=== PATIENT | female | born 1940 | race Caucasian/White ===

== ENCOUNTER → 2016-09-16 | Outpatient (CLI) | payer MEDICARE, BC ==
[2016-09-16 10:03] LABS: Basophils % (A) 1 %; CH 31.7; CHCM 33.1; Eosinophils # (A) 0.2 k/uL (0-0.7); Eosinophils % (A) 5 %; HCT 42.4 % (34.0-46.0); HDW 2.43; HGB 14.7 gm/dL (11.4-16.0); Luc # (Auto) 0.14; Luc % (Auto) 3; Lymphocytes # (A) 0.7 k/uL (1.0-4.8); Lymphocytes % (A) 17 %; MCH 33.4 pg (25.0-35.0); MCHC 34.8 g/dL (31.0-37.0); MCV 96.2 fL (80.0-100.0); Mean Platelet Volume 6.8; Monocytes # (A) 0.3 k/uL (0-1.0); Monocytes % (A) 6 %; Neutrophils % (A) 69 %; RDW 13.2 % (11.5-15.5); WBC 4.4 k/uL (3.8-10.6); WBC (Perox) 4.53
[2016-09-16 10:12] LABS: INR 1.1 (<1.1); Prothrombin Time 11.2 sec (9.0-12.0)
[2016-09-16 11:00] LABS: Appearance,Urine Clear (Clear); Bilirubin,Urine Negative (Negative); Glucose,Urine (UA) Negative (Negative); Ketones,Urine Negative (Negative); Leukocyte Esterase,Urine Trace (Negative); Mucus,Urine Rare /hpf; Nitrite,Urine Negative (Negative); PH, Urine 5.5 (5.0-8.0); Particle Count 2755; Protein,Urine Negative (Negative); RBC,Urine <1 /hpf (0-5); Specific Gravity,Urine 1.015 (1.001-1.035); Squamous Epithelial Cell,Urine <1 /hpf (0-4); UA Billing (MACRO vs. MICRO) MICRO; Urobilinogen,Urine <2.0 mg/dL (<2.0); WBC,Urine 1 /hpf (0-5)
[2016-09-16 11:37] LABS: ALT 50 U/L (9-52); AST 41 U/L (14-36); Alkaline Phosphatase 85 U/L (38-126); Anion Gap 11 mmol/L; Blood Urea Nitrogen 19 mg/dL (7-17); Calcium 9.8 mg/dL (8.4-10.2); Carbon Dioxide 25 mmol/L (22-30); Chloride 106 mmol/L (98-107); Cholesterol 188 mg/dL (<200); Creatine Kinase 73 U/L (30-135); Glucose 87 mg/dL (74-99); HDL Cholesterol 91 mg/dL (40-60); Iron 145 ug/dL (37-170); Non-African American GFR(MDRD) >60 (>60 ml/min/1.73 sqM); Potassium 4.6 mmol/L (3.5-5.1); Sodium 142 mmol/L (137-145); Total Bilirubin 0.9 mg/dL (0.2-1.3); Total Protein 7.2 g/dL (6.3-8.2); Triglycerides 64 mg/dL (<150); Uric Acid 6.2 mg/dL (3.7-7.4)
[2016-09-16 11:51] LABS: % Iron Saturation 55.6 % (20-50); Total Iron Binding Capacity 261 ug/dL (265-497)
== END | disposition home or self-care (01) ==
LOC: LABWHC1 09:32
PROVIDERS: ATTEND Internal Medicine
DX: E03.9 Hypothyroidism, unspecified (principal); K74.60 Unspecified cirrhosis of liver
CPT/HCPCS: 36415; 80053; 80061; 81001; 82140; 82550; 82728; 83036; 83540; 83550; 84439; 84443; 84550; 85025; 85610

== ENCOUNTER → 2016-12-26 | Outpatient (CLI) | payer MEDICARE, BC ==
--- NOTE | 2016-12-26 08:26 | US ---
EXAMINATION TYPE: US abdomen complete DATE OF EXAM: 12/26/2016 COMPARISON: CT CLINICAL HISTORY: R10.9 Abd Pain. Pt states GERD, ABD pain, Diarrhea EXAM MEASUREMENTS: Liver Length: 8.8 cm Gallbladder Wall: 0.3 cm CBD: 0.3 cm Spleen: 11.5 cm Right Kidney: 9.4 x 4.2 x 4.0 cm Left Kidney: 10.5 x 4.3 x 3.7 cm Pancreas: wnl, tail obscured by bowel gas Liver: Left lobe appeared enlarged, heterogeneous Gallbladder: wnl Evidence for sonographic Ackerman's sign: No CBD: wnl Spleen: wnl Right Kidney: wnl Left Kidney: wnl Upper IVC: wnl Abd Aorta: wnl The intrahepatic portion of the IVC and proximal abdominal aorta are within normal limits. There i s no evidence of cholelithiasis. Common bile duct is unremarkable. The visualized portions of the p ancreas are homogenous. The spleen is unremarkable. Kidneys are symmetric and free of hydronephrosi s. No renal lesions are seen. IMPRESSION: 1. Hepatic heterogeneity which may reflect fatty hepatic infiltration.
== END | disposition home or self-care (01) ==
LOC: RADUSWWP 07:44
PROVIDERS: ATTEND Internal Medicine
DX: R10.9 Unspecified abdominal pain (principal)
CPT/HCPCS: 76700

== ENCOUNTER → 2019-04-19 | Outpatient (CLI) | payer MEDICARE, BC ==
--- NOTE | 2019-04-19 11:38 | BD ---
EXAMINATION TYPE: Axial Bone Density DATE OF EXAM: 04/19/2019 COMPARISON: 2014 CLINICAL HISTORY: M81.0 Height: 62 inches Weight: 145 FRAX RISK QUESTIONS: Alcohol (3 or more units per day): no Family History (Parent hip fracture): no Glucocorticoids (More than 3mos): no (Ex: prednisone, prednisolone, methylprednisolone, dexamethasone, and hydrocortisone). History of Fracture in Adulthood: yes Secondary Osteoporosis: 1. Type 1 Diabetes: no 2. Hyperthyroidism: no 3. Menopause before 45: yes, age 43 4. Malnutrition: no 5. 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 Rheumatoid Arthritis: no Current Tobacco Use: no RISK FACTORS HISTORY OF: Family History of Osteoporosis: no Active: yes Diet low in dairy products/other sources of calcium: at least one serving a day Postmenopausal woman: yes Take estrogen and/or progesterone medications: not now How long: estrogen about 12 years, progesterone about 4 years Lost more than 2 inches in height since high school: no Frequent falls: no Poor Health: no Hyperparathyroidism: no Adrenal Insufficiency: no MEDICATIONS: Prednisone or other steroids: no Thyroid Medications: yes Which medication: Levothyroxine How Long: about 6 years Osteoporosis Medications: no Additional Medications: vitamin C ; Lexapro Additional History: Breast CA, took an antineoplastic about 5 years; total hysterectomy age 48; stra er levels are up EXAM MEASUREMENTS: Bone mineral densitometry was performed using the [employer] System. Bone mineral density as measured about the Lumbar spine is: ----- L1-L4(G/cm2): 1.008 T Score Values are as follows: ----- L2: -1.2 ----- L3: -1.0 ----- L4: -2.0 ----- L1-L4: -1.4 Bone mineral density has: Increased 0.9% since study of: 08/22/2014 Bone mineral density about the R hip (g/cm2): 0.671 Bone mineral density about the L hip (g/cm2): 0.669 T Score values are as follows: -----R Neck: -2.6 -----L Neck: -2.7 -----R Total: -2.4 -----L Total: -2.5 Bone mineral density has: Decreased -2.0% since study of: 08/22/2014 IMPRESSION: Osteoporosis (T Score less than -2.5). There is increased fracture risk and therapy is usually indicated based on age. Re-Screen 1-2 years. NOTE: T-SCORE=SD OF THE YOUNG ADULT MEAN.
--- NOTE | 2019-04-20 11:02 | MM ---
Reason for exam: screening (asymptomatic). Last mammogram was performed 4 years and 6 months ago. History: Patient is postmenopausal, has history of breast cancer at age 65, and had previous chest radiation therapy at age 64. Family history of breast cancer in sister at age 60 and breast cancer in aunt. Benign US biopsy breast VAD RT of the right breast, October 20, 2014. Excisional biopsy of the left breast, January 12, 2006. Malignant lumpectomy of the left breast, January 12, 2006. Malignant left mammotome panel of the left breast, December 22, 2005. Radiation therapy of the left breast, 2005. Took estrogen for 12 years beginning at age 49. Took progesterone for 4 years. Took tamoxifen for 5 years beginning at age 65. Physical Findings: A clinical breast exam by your physician is recommended on an annual basis and results should be correlated with mammographic findings. MG 3D Screening Mammo W/Cad Bilateral CC and MLO view(s) were taken. Prior study comparison: October 20, 2014, right breast MG diagnostic mammo RT wo CAD. August 22, 2014, bilateral MG diagnostic mammo w CAD DAVID. The breast tissue is heterogeneously dense. This may lower the sensitivity of mammography. Benign appearing bilateral calcifications, greater in the left breast. Right biopsy marker noted. No suspicious abnormality. Post therapy change on the left. No significant changes when compared with prior studies. ASSESSMENT: Negative, BI-RAD 1 RECOMMENDATION: Routine screening mammogram of both breasts in 1 year.
== END | disposition home or self-care (01) ==
LOC: RADMAMWWP 09:37
PROVIDERS: ATTEND Internal Medicine
DX: Z12.31 Encounter for screening mammogram for malignant neoplasm of breast (principal); M81.0 Age-related osteoporosis without current pathological fracture
CPT/HCPCS: 77063; 77067; 77080

== ENCOUNTER → 2020-09-04 | Outpatient (CLI) | payer MEDICARE, BC ==
--- NOTE | 2020-09-06 09:34 | MM ---
Reason for exam: screening (asymptomatic). Last mammogram was performed 1 year and 5 months ago. History: Patient is postmenopausal, has history of breast cancer at age 65, and had previous chest radiation therapy at age 64. Family history of breast cancer in sister at age 60 and breast cancer in aunt. Benign US biopsy breast VAD RT of the right breast, October 20, 2014. Excisional biopsy of the left breast, January 12, 2006. Malignant lumpectomy of the left breast, January 12, 2006. Malignant left mammotome panel of the left breast, December 22, 2005. Radiation therapy of the left breast, 2005. Took estrogen for 12 years beginning at age 49. Took progesterone for 4 years. Took tamoxifen for 5 years beginning at age 65. Physical Findings: A clinical breast exam by your physician is recommended on an annual basis and results should be correlated with mammographic findings. MG 3D Screening Mammo W/Cad Bilateral CC and MLO view(s) were taken. XCCL view(s) were taken of the left breast. Prior study comparison: April 19, 2019, bilateral MG 3d screening mammo w/cad. October 20, 2014, right breast MG diagnostic mammo RT wo CAD. The breast tissue is heterogeneously dense. This may lower the sensitivity of mammography. Previous mammotome biopsy in the right breast. Left post operative changes. ASSESSMENT: Benign, BI-RAD 2 RECOMMENDATION: Routine screening mammogram of both breasts in 1 year.
== END | disposition home or self-care (01) ==
LOC: RADMAMWWP 09:52
PROVIDERS: ATTEND Internal Medicine
DX: Z12.31 Encounter for screening mammogram for malignant neoplasm of breast (principal)
CPT/HCPCS: 77063; 77067

== ENCOUNTER 2021-02-23 15:27 | Emergency (ER) | payer MEDICARE, BC ==
[2021-02-23 17:43] VITALS: BP 151/69; PULSE 55; RESP 16; TEMP 98.7
--- NOTE | 2021-02-23 18:35 | CT ---
EXAMINATION TYPE: CT brain lucine wo con DATE OF EXAM: 02/23/2021 COMPARISON: None HISTORY: Fall yesterday. CT DLP: 1299.8 mGycm Automated exposure control for dose reduction was used. TECHNIQUE: CT scan of the head and cervical spine are performed without contrast. FINDINGS: There is no acute intracranial hemorrhage, mass effect, or midline shift identified. The ventricles and sulci are within normal limits in size. The globes are intact and the visualized sin uses are clear. Subcutaneous presumably scalp hematomas are identified along the right posterior skull. The largest m easuring up to 2.0 x 1.1 cm. Cervical spine is visualized in its entirety from C1 through upper thoracic levels and demonstrates s atisfactory alignment without evidence of acute fracture or dislocation. Prevertebral soft tissue ap pears within normal limits. The C1-C2 articulation is unremarkable. Vascular calcifications at the left carotid bifurcation. IMPRESSION: 1. There is no acute fracture or dislocation evident in the cervical spine. 2. No acute intracranial hemorrhage, mass effect, or midline shift is seen. 3. Right posterior scalp hematomas.
--- NOTE | 2021-02-23 19:11 | ED ---
Head Injury HPI - General Chief complaint: Head Injury Stated complaint: Fall,Head injury Time Seen by Provider: 02/23/21 18:34 Source: patient Mode of arrival: ambulatory Limitations: no limitations - History of Present Illness Initial comments: 80-year-old female who presents emergency department after she sustained a head injury yesterday. She reports that she was attempting to get a food delivery off of her front porch when she actually lost her balance and fell. She hit the right side of her head on the ledge leading into her house. She did not lose consciousness. Patient is not a blood thinners. She has had a mild headache without visual changes. Admits to nausea without vomiting. She denies any neck pain. She did have some bleeding from a scalp laceration however is pearly controlled at this time. She told family members about the injury and they recommended that she come into the emergency department for a CAT scan. She den ies any unilateral numbness or weakness. No difficulties with ambulation. Denies vomiting. No chest pain or shortness of breath. No thoracic or lumbar back pain. No alleviating precipitating or modifying factors - Related Data Allergies/Adverse reactions: Allergies Allergy/AdvReac Type Severity Reaction Status Date / Time No Known Allergies Allergy Verified 02/23/21 17:43 Review of Systems ROS Statement: Those systems with pertinent positive or pertinent negative responses have been documented in the HPI. ROS Other: All systems not noted in ROS Statement are negative. Past Medical History Past Medical History: Liver Disease, Thyroid Disorder Additional Past Medical History / Comment(s): mitral valve prolapse History of Any Multi-Drug Resistant Organisms: None Reported Past Surgical History: Section, Hysterectomy Past Psychological History: No Psychological Hx Reported Smoking Status: Never smoker Past Alcohol Use History: Occasional Past Drug Use History: None Reported General Exam Limitations: no limitations General appearance: alert, in no apparent distress Head exam: Present: normocephalic, normal inspection, other (posterior scalp laceration with overlying scabbing - 2.5 x 1.0 cm. No active bleeding) Eye exam: Present: normal appearance, PERRL, EOMI. Absent: scleral icterus, conjunctival injection, periorbital swelling ENT exam: Present: normal exam, mucous membranes moist Neck exam: Present: normal inspection. Absent: tenderness, meningismus, lymphadenopathy Respiratory exam: Present: normal lung sounds bilaterally. Absent: respiratory distress, wheezes, rales, rhonchi, stridor Cardiovascular Exam: Present: regular rate, normal rhythm, normal heart sounds. Absent: systolic murmur, diastolic murmur, rubs, gallop, clicks GI/Abdominal exam: Present: soft, normal bowel sounds. Absent: distended, tenderness, guarding, rebound, rigid Extremities exam: Present: normal inspection, full ROM, normal capillary refill. Absent: tenderness, pedal edema, joint swelling, calf tenderness Back exam: Present: normal inspection Neurological exam: Present: alert, oriented X3, CN II-XII intact Psychiatric exam: Present: normal affect, normal mood Skin exam: Present: warm, dry, intact, normal color. Absent: rash Course Vital Signs 02/23/21 17:39 Temperature 98.7 F Pulse Rate 55 L Respiratory 16 Rate Blood Pressure 151/69 O2 Sat by Pulse 97 Oximetry Medical Decision Making - Medical Decision Making Upon arrival patient is placed into room 29. A thorough history and physical exam was performed. Patient is sent over for a CT of her brain and cervical spine which demonstrates no acute intracranial process. No cervical spinal fractures. I did evaluate the patient's skin which demonstrates a scalp laceration which has a scab formation over the top of it. At this time stable repair will not be performed as the injury happened over 24 hours ago. Patient understood and agreed to the treatment plan. Is discharged home and is to follow-up with her primary care doctor in 2-4 days. Return for any new or worsening symptoms for patient is discharged home in stable condition Disposition Clinical Impression: Closed head injury Disposition: HOME SELF-CARE Condition: Stable Instructions (If sedation given, give patient instructions): Concussion (ED) Additional Instructions: Please follow-up with your primary care doctor in 2-4 days. Return to the emergency room for any new or worsening symptoms Is patient prescribed a controlled substance at d/c from ED?: No Referrals: Saman Ngo MD [Primary Care Provider] - 1-2 days Time of Disposition: 19:11
== END 2021-02-23 19:14 | disposition home or self-care (01) ==
LOC: EC 15:27
DX: S09.90XA Unspecified injury of head, initial encounter (principal); S01.01XA Laceration without foreign body of scalp, initial encounter; W01.198A Fall on same level from slipping, tripping and stumbling with subsequent striking against other object, initial encounter; Y93.89 Activity, other specified; Y92.89 Other specified places as the place of occurrence of the external cause
CPT/HCPCS: 70450; 72125; 99284

== ENCOUNTER → 2021-09-10 | Outpatient (CLI) | payer MEDICARE, BC ==
--- NOTE | 2021-09-11 08:55 | MM ---
Reason for Exam: Screening (asymptomatic). Last screening mammogram was performed 12 month(s) ago. Patient History: Menarche at age 14. First Full-Term at age 23. Left ovary removed at age 48. Right ovary removed at age 48. Hysterectomy at age 48. Postmenopausal. Breast cancer, age 65. Previous chest radiation therapy at age 64. Estrogen, starting at age 49 for 12 years. Patient used Progesterone for 4 years. Tamoxifen for 5 years from age 65 until age 70. 01/12/2006, Excisional Biopsy on the Left side. 01/12/2006, Malignant Lumpectomy on the left side. 10/20/2014, Benign Core Biopsy on the right side. 12/22/2005, Malignant Core Biopsy on the left side. 2005, Radiation Therapy on the left side. Maternal aunt had breast cancer. Sister had breast cancer, age 60. Prior Study Comparison: 10/20/2014 Right Diagnostic Mammogram, [facility]. 04/19/2019 Bilateral Screening Mammogram, [facility]. 09/04/2020 Bilateral Screening Mammogram, [facility]. Tissue Density: The breast tissue is extremely dense which could obscure a lesion on mammography. Findings: Analyzed By CAD. Left breast is smaller than the right. Scattered benign calcifications are within the left breast. A core marker is within the right breast. Postbiopsy changes are in the upper outer aspect left breast. No suspicious groups of microcalcifications, spiculated or lobular masses, architectural distortion or other secondary signs of malignancy are mammographically apparent. Overall Assessment: Benign, BI-RAD 2 Management: Screening Mammogram of both breasts in 1 year. A negative mammogram report should not preclude additional follow up of suspicious palpable abnormalities. Patient should continue monthly self breast exam. A clinical breast exam by your physician is recommended on an annual basis and results should be correlated with mammographic findings. Electronically signed and approved by: Shailesh Craig D.O. Radiologis
== END | disposition home or self-care (01) ==
LOC: RADMAMWWP 15:34
PROVIDERS: ATTEND Internal Medicine
DX: Z12.31 Encounter for screening mammogram for malignant neoplasm of breast (principal); M81.0 Age-related osteoporosis without current pathological fracture
CPT/HCPCS: 77067

== ENCOUNTER → 2022-04-21 | Outpatient (CLI) | payer MEDICARE, BC ==
--- NOTE | 2022-04-21 10:29 | XR ---
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 COMPARISON: None. FINDINGS: There are 5 lumbar type vertebral bodies identified. The lumbar spine shows satisfactory alignment w ithout evidence of acute fracture or dislocation. Vertebral body heights are within normal limits. Mu ltilevel degenerative disc disease with disc space narrowing, endplate sclerosis, and anterior osteop hytosis. Multilevel facet arthropathy with at least bilateral neural foraminal stenosis at L4-L5 and L5-S1. The overlying soft tissue appears unremarkable. IMPRESSION: 1. No acute fracture or dislocation is seen in the lumbar spine. 2. Mild to moderate multilevel degenerative disc disease.
--- NOTE | 2022-04-21 10:35 | US ---
EXAMINATION TYPE: US liver DATE OF EXAM: 04/21/2022 COMPARISON: Abdominal ultrasound 12/26/2016 CLINICAL HISTORY: K.70 hepatitis TECHNIQUE: Multiple sonographic images of the right upper quadrant are obtained. FINDINGS: EXAM MEASUREMENTS: Liver Length: 9.03 cm Gallbladder Wall: 0.2 cm CBD: 0.2 cm Right Kidney: 9.3 x 4.5 x 4.0 cm DIRECTOR OF COLLECTIONS NOTES: Pancreas: somewhat obscured by bowel gas, portions visualized wnl Liver: mildly heterogeneous Gallbladder: wnl Evidence for sonographic Ackerman's sign: no CBD: wnl Right Kidney: wnl The visualized portions of the pancreas are unremarkable. The liver demonstrates heterogenous echotex ture without focal lesion identified. No definitive nodular contour. No cholelithiasis. Common bile d uct is within normal limits. The right kidney is within normal limits evidence of hydronephrosis, les ion, or nephrolithiasis. IMPRESSION: Redemonstration of hepatic heterogeneity suggestive of nonspecific hepatocellular disease. No focal l esion identified.
--- NOTE | 2022-04-21 10:58 | US ---
EXAMINATION TYPE: US carotid duplex BILAT DATE OF EXAM: 04/21/2022 COMPARISON: NONE CLINICAL HISTORY: I65.23 OCCLUSION AND STENOSIS Z13.6 CARDIOV. TECHNIQUE: Carotid duplex ultrasound examination. Indirect Doppler criteria was utilized. FINDINGS: EXAM MEASUREMENTS: RIGHT: Peak Systolic Velocity (PSV) cm/sec ----- Right CCA: 80.6 ----- Right ICA: 103 ----- Right ECA: 73.5 ICA/CCA ratio: 1.28 RIGHT: End Diastole cm/sec ----- Right CCA: 17.5 ----- Right ICA: 25.2 ----- Right ECA: 0.0 LEFT: Peak Systolic Velocity (PSV) cm/sec ----- Left CCA: 76.9 ----- Left ICA: 75.8 ----- Left ECA: 71.5 ICA/CCA ratio: 0.98 LEFT: End Diastole cm/sec ----- Left CCA: 76.9 ----- Left ICA: 75.8 ----- Left ECA: 71.5 VERTEBRALS (direction of flow): Right Vertebral: Antegrade Left Vertebral: Antegrade Rhythm: Normal BREASTER NOTES: Mild atherosclerotic changes without significant velocity increases bilaterally. IMPRESSION: No clinically significant stenosis of the bilateral visualized carotid arterial systems. Criteria for Assigning % of Stenosis / Diameter reduction (Estimation based on the indirect measurements of the internal carotid artery velocities (ICA PSV). 1. Normal (no stenosis)=ICA PSV < 125 cm/s: ratio < 2.0: ICA EDV<40 cm/s. 2. Less than 50% stenosis=ICA PSV < 125 cm/s: ratio < 2.0: ICA EDV<40 cm/s. 3. 50 to 69% stenosis=ICA PSV of 125 to 230 cm/s: ration 2.0 ? 4.0: ICA EDV 40-100 cm/s. 4. Greater than 70% stenosis to near occlusion= ICA PSV > 230 cm/s: ratio > 4.0: ICA EDV > 100 cm/s. 5. Near occlusion= ICA PSV velocities may be low or undetectable: variable ratio and ICA EDV. 6. Total occlusion=unable to detect flow.
--- NOTE | 2022-04-21 12:21 | CT ---
EXAMINATION TYPE: CT heart w calcium score DATE OF EXAM: 04/21/2022 COMPARISON: None. HISTORY: Screening for cardiovascular disorder. 213.9 CT DLP: 67.2 mGycm Automated exposure control for dose reduction was used. CT CALCIUM SCORING Coronary calcium is a marker for plaque (fatty deposits) in a blood vessel or atherosclerosis (harden ing of the arteries). The presence and amount of calcium detected in a coronary artery by the CT sca n, indicates the presence and amount of atherosclerotic plaque. These calcium deposits appear years before the development of heart disease symptoms such as chest pain and shortness of breath. A calcium score is computed for each of the coronary arteries based upon the volume and density of th e calcium deposits. This can be referred to as your calcified plaque burden. It does not correspond directly to the percentage of narrowing in the artery but does correlate with the severity of the un derlying coronary atherosclerosis. PROCEDURE TECHNIQUE - Prospective Gating was used. Slice thickness: 3mm. Density threshold (HU): 130, Pixel threshold: 3, Algorithm: discrete. RESULTS Region: LM Calcium Score (Agatston): 0 Volume (mm3): 0 Mass (g): 0 Region: RCA Calcium Score (Agatston): 0 Volume (mm3): 0 Mass (g): 0 Region: LAD Calcium Score (Agatston): 0 Volume (mm3): 0 Mass (g): 0 Region: CX Calcium Score (Agatston): 0 Volume (mm3): 0 Mass (g): 0 TOTAL CALCIUM SCORE: 0 Incidental findings: Surgical clips posteriorly in the left breast are present. IMPRESSION: Calcium Score: 0 Implication: No identifiable plaque. Risk of Coronary Artery Disease: Very low, generally less than 5%. CALCIUM SCORE IMPLICATION RISK OF C ORONARY ARTERY DISEASE 0 No identifiable plaque Very low, generally less than 5% 1-10 Minimal identifiable plaque Very unlikely, less than 10% 11-100 Definite, at least mild atherosclerotic plaque Mild or m inimal coronary narrowings likely 101-400 Definite, at least moderate atherosclerotic plaque Mild coronary ar zahra disease highly likely, significant narrowing possible 401 or Higher Extensive atherosclerotic plaque High lik elihood of at least one significant coronary narrowing
== END | disposition home or self-care (01) ==
LOC: RADUSWWP 09:23
PROVIDERS: ATTEND Internal Medicine
DX: Z13.6 Encounter for screening for cardiovascular disorders (principal); K70.10 Alcoholic hepatitis without ascites; I65.23 Occlusion and stenosis of bilateral carotid arteries; M47.816 Spondylosis without myelopathy or radiculopathy, lumbar region; M51.36 Other intervertebral disc degeneration, lumbar region; I25.10 Atherosclerotic heart disease of native coronary artery without angina pectoris; K76.89 Other specified diseases of liver
CPT/HCPCS: 72100; 75571; 76705; 93880

== ENCOUNTER → 2022-06-25 | Outpatient (CLI) | payer MEDICARE, BC ==
--- NOTE | 2022-06-25 12:20 | CT ---
CT CHEST FOR PULMONARY EMBOLISM. EXAMINATION TYPE: CT angio chest DATE OF EXAM: 06/25/2022 INDICATION: Elevated d-dimer, trouble breathing CT DLP: 258.5 mGycm, Automated exposure control for dose reduction was used. CONTRAST: Patient injected with 100, wasted 34 ml mL of Isovue 370. COMPARISON: Hepatic ultrasound 04/21/2022 TECHNIQUE: CT of the chest is performed on a spiral scan at 2 mm thick sections. Study is performed with intravenous contrast timed for evaluation for pulmonary embolism. This will limit additional po rtions of the evaluation. 3-D MIP images reconstructed by the technologist are reviewed on the compu ter in the coronal and sagittal planes. FINDINGS: No persistent filling defects are evident to suggest an acute pulmonary embolism. No mediastinal or hilar adenopathy enlarged by CT criteria is evident. The ascending aorta diameter at the level of the main pulmonary artery is 2.7 cm. The main pulmonary artery diameter at the bifur cation is 2.4 cm. Lung windows are clear. Limited CT section through the upper abdomen. There is a 1.9 cm hypodensity within the right lobe star er. Follow-up is recommended. This is not a simple cyst. This is not identified previously. Recommend follow-up ultrasound IMPRESSIONS: 1. No acute pulmonary embolism. 2. 1.9 cm hypodensity within the right lobe liver. Additional workup with ultrasound is recommended.
== END | disposition home or self-care (01) ==
LOC: RADCTMAIN 11:16
PROVIDERS: ATTEND Internal Medicine
DX: K76.89 Other specified diseases of liver (principal); R79.1 Abnormal coagulation profile
CPT/HCPCS: 71275; Q9967

== ENCOUNTER → 2022-07-18 | Outpatient (CLI) | payer MEDICARE, BC ==
--- NOTE | 2022-07-20 20:18 | MR ---
EXAMINATION TYPE: MR liver wo/w con DATE OF EXAM: 07/18/2022 COMPARISON: CT chest 06/25/2022 and ultrasound liver 04/21/2022 HISTORY: 81-year-old female R93.2, Abnormal US TECHNIQUE: Multiplanar, multisequence images of the abdomen were obtained before and after administra tion of 6.5 mL intravenous Gadavist gadolinium contrast. FINDINGS: The right lobe of the liver shrunken. There is some background heterogeneity of the liver with reticu lar change suggesting underlying fibrosis. There is also slight decrease in signal intensity on out o f phase T1-weighted sequence ingesting corresponding mild fatty infiltration. There is redemonstration of a 2.1 cm lesion within the lateral right liver lobe. This shows T2 bright signal and mildly increased T1-weighted signal as well. Pronounced loss of signal on out of phase T1 -weighted sequence. After contrast, there is central hypervascular enhancement. Some washout is prese nt but with persistent enhancement of a central nodular area No other focal liver lesions are seen. Gallbladder, adrenal glands, kidneys with extra renal pelves, spleen, and atrophic pancreas show no g ross abnormality. No biliary ductal dilatation. Portal venous system is patent. No upper abdominal lymphadenopathy, gross bowel abnormality, or ascites fluid. The heart appears borderline in size. No pericardial or pleural effusion is seen. IMPRESSION: 1. T1 bright lesion measuring 2.1 cm in the lateral right liver lobe that contains intracellular fat and shows some central hypervascular enhancement. Some persistent enhancement in the central portion and some washout in the periphery. Possible central scar. The signal characteristics are overall inde terminant. Hepatic adenoma is a differential consideration. 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 2. There seems to be some background fibrosis in the liver as well as mild fatty infiltration.
== END | disposition home or self-care (01) ==
LOC: RADMRIMAIN 13:31
PROVIDERS: ATTEND Internal Medicine
DX: K76.9 Liver disease, unspecified (principal); R93.2 Abnormal findings on diagnostic imaging of liver and biliary tract
CPT/HCPCS: 74183; A9585

== ENCOUNTER → 2022-10-07 | Outpatient (CLI) | payer MEDICARE, BC ==
[2022-10-07 17:07] LABS: Partial Thromboplastin Time 24.9 sec (22.0-30.0); Prothrombin Time 10.9 sec (9.0-12.0)
[2022-10-07 21:17] LABS: Basophils # (A) 0.02 X 10*3/uL (0.00-0.10); Basophils % (A) 0.3 %; Eosinophils # (A) 0.26 X 10*3/uL (0.04-0.35); Eosinophils % (A) 3.6 %; HCT 45.3 % (37.2-46.3); HGB 14.7 d/dL (12.0-15.0); Lymphocytes # (A) 1.48 X 10*3/uL (0.90-5.00); Lymphocytes % (A) 20.7 %; MCH 31.7 pg (27.0-32.0); MCHC 32.5 d/dL (32.0-37.0); MCV 97.8 FL (80.0-97.0); Mean Platelet Volume 10.6 FL (9.5-12.2); Monocytes # (A) 0.78 X 10*3/uL (0.20-1.00); Monocytes % (A) 10.9 %; NRBC Per 100 WBC 0 X 10*3/uL (0.00-0.01); Neutrophils % (A) 64.2 %; Platelet Count 170 X 10*3/uL (140-440); RBC 4.63 X 10*6/uL (4.10-5.20); WBC 7.16 X 10*3/uL (4.50-10.00)
[2022-10-08 02:41] LABS: ALT 68 U/L (8-44); AST 58 U/L (13-35); Albumin 4.4 d/dL (3.8-4.9); Albumin/Globulin Ratio 1.57 Ratio (1.60-3.17); Alkaline Phosphatase 106 U/L (41-126); BUN/Creat Ratio 22.38 Ratio (12.00-20.00); Blood Urea Nitrogen 17.9 mg/dL (9.0-27.0); Calcium 9.8 mg/dL (8.7-10.3); Carbon Dioxide 24.2 mmol/L (21.6-31.8); Chloride 104 mmol/L (96-109); Globulin 2.8 d/dL (1.6-3.3); Glucose 124 mg/dL (70-110); Magnesium 2.2 mg/dL (1.5-2.4); Potassium 4.7 mmol/L (3.5-5.5); Sodium 140 mmol/L (135-145); Total Bilirubin 0.5 mg/dL (0.3-1.2); Total Protein 7.2 d/dL (6.2-8.2)
== END | disposition home or self-care (01) ==
LOC: LABWHC1 15:33
PROVIDERS: ATTEND Transplant Surgery
DX: K52.9 Noninfective gastroenteritis and colitis, unspecified (principal); R16.0 Hepatomegaly, not elsewhere classified
CPT/HCPCS: 36415; 80053; 83735; 85025; 85610; 85730

== ENCOUNTER → 2023-02-27 | Day surgery (SDC) | payer MEDICARE, BC ==
[2023-02-26 10:37] VITALS: BMI 26.3
[~2023-02-27] MED LIST: LACTATED RINGERS 1,000 ML IV SCH; MIDAZOLAM 2 MG/2 ML VIAL ONE; PROPOFOL 10 MG/ML 20 ML VIAL IV ONE
[2023-02-27 14:16] VITALS: TEMP 97.6
--- NOTE | 2023-02-27 15:18 | P.PCN ---
Date of Procedure: 02/27/23 Procedure(s) Performed: BRIEF HISTORY: Patient is a 82-year-old, pleasant, white female with history of cryptogenic cirrhosis of the liver diagnosed in 1999, scheduled for an upper endoscopy as a part of screening for esophageal varices. PROCEDURE PERFORMED: Esophagogastroduodenoscopy. PREOPERATIVE DIAGNOSIS: History of liver cirrhosis screening for esophageal varices. IV sedation per anesthesia. PROCEDURE: After informed consent was obtained, the patient was brought into the endoscopy unit. IV sedation was administered by Anesthesia under continuous monitoring. Initially the Olympus GIF-140 video endoscope was inserted into the mouth. Esophagus intubated without any difficulty. It was gradually advanced into the stomach and duodenum and carefully examined. The bulb and the second part of the duodenum appeared normal. The scope at this time was withdrawn to the stomach, adequately insufflated with air, and upon careful examination, mucosa of the antrum, body, had mild diffuse gastritis. Mucosa of the cardia and the fundus appeared normal. The scope was then withdrawn into the esophagus. The GE junction was located at 39 cm from the incisors. The esophagus appeared normal. There were no erosions or ulcerations seen . No evidence of esophageal varices and the patient tolerated the procedure well. IMPRESSION: 1. Diffuse antral gastritis. 2. No evidence of gastric or esophageal varices. RECOMMENDATIONS: The findings of this examination were discussed with the patient as well as her family. She was advised to have a repeat EGD in 2-3 years to screen for esophageal varices.
[2023-02-27 15:50] VITALS: BP 142/60; PULSE 92; RESP 16
== END ==
LOC: ORWHC2ENDO 13:11
PROVIDERS: ATTEND Internal Medicine Gastroenterology
DX: K29.50 Unspecified chronic gastritis without bleeding (principal); K74.60 Unspecified cirrhosis of liver; I34.1 Nonrheumatic mitral (valve) prolapse; E03.9 Hypothyroidism, unspecified; Z79.890 Hormone replacement therapy; Z79.899 Other long term (current) drug therapy; Z85.05 Personal history of malignant neoplasm of liver; Z88.5 Allergy status to narcotic agent; Z91.040 Latex allergy status
CPT/HCPCS: 43235; J2250; J2704

== ENCOUNTER 2023-07-28 12:20 | Emergency (ER) | payer MEDICARE, BC ==
--- NOTE | 2023-07-28 12:29 | ED ---
General Adult HPI - General Chief complaint: Extremity Injury, Lower Stated complaint: Fall-R ankle injury Time Seen by Provider: 07/28/23 12:25 Source: patient, RN notes reviewed, old records reviewed Mode of arrival: wheelchair Limitations: no limitations - History of Present Illness Initial comments: This is an 82-year-old female who presents to the emergency department stating that she tripped while dropping off some clothes. Patient complains of right foot ankle and proximal leg pain. Patient denies any knee pain. Patient has any hip pain. Patient denies hitting her head or neck. Patient denies any other injury at this time. Patient states the pain is quite severe at this time. Patient states she did take 2 mg of p.o. Dilaudid. - Related Data Home Medications Medication Instructions Recorded Confirmed ALPRAZolam [Xanax] 0.5 mg PO DAILY PRN 02/26/23 07/28/23 Escitalopram [Lexapro] 20 mg PO HS 02/26/23 07/28/23 Levothyroxine Sodium [Synthroid] 75 mcg PO DAILY 02/26/23 07/28/23 Metoprolol Succinate (ER) [Toprol 12.5 mg PO DAILY 02/26/23 07/28/23 Xl] Previous Rx's Medication Instructions Recorded HYDROcodone/APAP 5-325MG [[place] 1 tab PO Q6HR PRN 3 Days #12 tab 07/28/23 5-325] Ibuprofen [Motrin] 600 mg PO Q6HR PRN #20 tab 07/28/23 Allergies Allergy/AdvReac Type Severity Reaction Status Date / Time codeine AdvReac Nausea & Verified 07/28/23 14:10 Vomiting latex AdvReac Rash/Hives Verified 07/28/23 14:10 Review of Systems ROS Statement: Those systems with pertinent positive or pertinent negative responses have been documented in the HPI. ROS Other: All systems not noted in ROS Statement are negative. Past Medical History Past Medical History: Cancer, Liver Disease, Thyroid Disorder Additional Past Medical History / Comment(s): mitral valve prolapse, hypothyroidism, liver cancer cirrhosis, breast cancer lumpectomy left 2007 History of Any Multi-Drug Resistant Organisms: None Reported Past Surgical History: Breast Surgery, Section, Hysterectomy, Orthopedic Surgery Additional Past Surgical History / Comment(s): Shoulder surgery, lumpectomy left breast 2006 Past Anesthesia/Blood Transfusion Reactions: No Reported Reaction Additional Past Anesthesia/Blood Transfusion Reaction / Comment(s): no blood transfusion reaction Past Psychological History: No Psychological Hx Reported Smoking Status: Former smoker General Exam - General Exam Comments Initial Comments: GENERAL Patient is well-developed and well-nourished. Patient is in mild distress. EYES Patient's pupils are equal and round. Extraocular motion is intact SKIN Unremarkable NEURO The patient is alert and oriented -3 PYSCH Patient has normal interpersonal interactions. MUSCULOSKELETAL Patient's right foot is swollen and ecchymotic on the lateral aspect very tender on the midfoot lateral aspect of the foot medial and lateral ankle as well as proximal fibula Limitations: no limitations Course Vital Signs 07/28/23 12:23 Temperature 97.9 F Pulse Rate 62 Respiratory 18 Rate Blood Pressure 175/71 O2 Sat by Pulse 99 Oximetry Procedures - Orthopedic Splinting/Casting Injury #1 Side: right Lower Extremity Injury Location: short leg Lower Extremity Immobilizer: posterior splint Medical Decision Making - Medical Decision Making Was pt. sent in by a medical professional or institution (Dr. PA, [facility], urgent care, hospital, or senior care...) When possible be specific @ -No Did you speak to anyone other than the patient for history (EMS, parent, family, police, friend...)? What history was obtained from this source @ -No Did you review nursing and triage notes (agree or disagree)? Why? @ -I reviewed and agree with nursing and triage notes Were old charts reviewed (outside hosp., previous admission, EMS record, old EKG, old radiological studies, urgent care reports/EKG's, senior care records)? Report findings @ -No old charts were reviewed Differential Diagnosis (chest pain, altered mental status, abdominal pain women, abdominal pain men, vaginal bleeding, weakness, fever, dyspnea, syncope, headache, dizziness, GI bleed, back pain, seizure, CVA, palpatations, mental health, musculoskeletal)? @ -Differential Musculoskeletal Muscular strain, contusion, ligament sprain, fracture, arthritis, septic arthritis, bursitis, cellulitis, muscle spasm, nerve compression, DVT, arterial occlusion, herpes zoster, electrolyte abnormality, tumor.... This is not meant to be in all inclusive list EKG interpreted by me (3pts min.). @ -As above X-rays interpreted by me (1pt min.). @ -X-ray of the ankle shows no acute abnormality. X-ray of the tib-fib shows no acute traumatic. X-ray of the foot shows a questionable fracture of the base of the second metatarsal CT interpreted by me (1pt min.). @ -None done U/S interpreted by me (1pt. min.). @ -None done What testing was considered but not performed or refused? (CT, X-rays, U/S, labs)? Why? @ -None What meds were considered but not given or refused? Why? @ -None Did you discuss the management of the patient with other professionals (professionals i.e. DrEliza, PA, [facility], lab, RT, psych nurse, psychologist social, timber feller, teacher, lead security officer, egg caser)? Give summary @ -No Was smoking cessation discussed for >3mins.? @ -No Was critical care preformed (if so, how long)? @ -No Were there social determinants of health that impacted care today? How? (Homelessness, low income, unemployed, alcoholism, drug addiction, transportation, low edu. Level, literacy, decrease access to med. care, fdc, rehab)? @ -No Was there de-escalation of care discussed even if they declined (Discuss DNR or withdrawal of care, Hospice)? DNR status @ -No What co-morbidities impacted this encounter? (DM, HTN, Smoking, COPD, CAD, Cancer, CVA, ARF, Chemo, Hep., AIDS, mental health diagnosis, sleep apnea, morb id obesity)? @ -None Was patient admitted / discharged? Hospital course, mention meds given and route, prescriptions, significant lab abnormalities, going to OR and other pertinent info. @ -Patient had a questionable second metatarsal fracture other than that no fractures noted but he had she had significant ecchymosis of the foot and was unable to ambulate on it patient did receive a splint and will follow-up with orthopedics. Patient also received Toradol and Dilaudid and was feeling considerably better. Undiagnosed new problem with uncertain prognosis? @ -No Drug Therapy requiring intensive monitoring for toxicity (Heparin, Nitro, Insulin, Cardizem)? @ -No Were any procedures done? @ -No Diagnosis/symptom? @ -Second metatarsal fracture Acute, or Chronic, or Acute on Chronic? @ -Acute Uncomplicated (without systemic symptoms) or Complicated (systemic symptoms)? @ -Uncomplicated Side effects of treatment? @ -No Exacerbation, Progression, or Severe Exacerbation? @ -No Poses a threat to life or bodily function? How? (Chest pain, USA, ID, pneumonia, PE, COPD, DKA, ARF, appy, cholecystitis, CVA, Diverticulitis, Homicidal, Suicidal, threat to staff... and all critical care pts) @ -No Diagnosis/symptom? @ -Foot sprain Acute, or Chronic, or Acute on Chronic? @ -Acute Uncomplicated (without systemic symptoms) or Complicated (systemic symptoms)? @ -Uncomplicated Side effects of treatment? @ -None Exacerbation, Progression, or Severe Exacerbation] @ -No Poses a threat to life or bodily function? @ -No Diagnosis/symptom? @ -Ankle sprain Acute, or Chronic, or Acute on Chronic? @ -Acute Uncomplicated (without systemic symptoms) or Complicated (systemic symptoms)? @ -Uncomplicated Side effects of treatment? @ -None Exacerbation, Progression, or Severe Exacerbation] @ -No Poses a threat to life or bodily function? @ -No Disposition Clinical Impression: Fracture of second metatarsal bone, Foot sprain, Ankle sprain Disposition: HOME SELF-CARE Instructions (If sedation given, give patient instructions): Ankle Sprain (ED), Foot Sprain (ED), Foot Fracture in Adults (ED) Additional Instructions: Patient should be nonweightbearing. Patient should follow-up with Ortho today or tomorrow Prescriptions: Ibuprofen [Motrin] 600 mg PO Q6HR PRN #20 tab PRN Reason: For pain HYDROcodone/APAP 5-325MG [[place] 5-325] 1 tab PO Q6HR PRN 3 Days #12 tab PRN Reason: Pain Scale 4 To 5 Is patient prescribed a controlled substance at d/c from ED?: No Referrals: Saman Ngo MD [Primary Care Provider] - 1-2 days Time of Disposition: 14:55
[2023-07-28] MEDS: HYDROmorphone 0.5 MG/0.5 ML SYRINGE IM STA (12:55)
[2023-07-28] MEDS: KETOROLAC 15 MG/ML 1 ML VIAL IM STA (12:55)
[2023-07-28 13:40] VITALS: RESP 18; TEMP 97.9
--- NOTE | 2023-07-28 14:00 | XR ---
EXAMINATION TYPE: XR tibia fibula 2 views RT, XR foot complete 3 views RT, XR ankle complete 3 views RT DATE OF EXAM: 07/28/2023 COMPARISON: NONE HISTORY: 82-year-old female trauma, distal leg pain after rolling injury today FINDINGS: Tibia/fibula: No acute fracture of the more proximal to mid tibia or fibula. Knee articulation grossly intact witho ut joint effusion. Ankle: Ankle mortise is congruent with preservation of the distal tibiofibular overlap. Talar dome is intact . Subtalar joint align. Smooth delineation to the Achilles tendon. Small posterior and plantar heel s purs. No acute fracture, subluxation, dislocation. Foot: Osteopenia. Moderate to severe degenerative change first MCP joint. Some bony irregularity along the medial base of the second metatarsal on the AP view. Some dorsal soft tissue swelling is present. Luis e dorsal degenerative spurring at the mid foot. No other acute fracture, subluxation, dislocation is seen. IMPRESSION: 1. Tibia/fibula: No acute osseous abnormality seen. 2. Ankle: No acute osseous abnormality seen. 3. Foot: Bony irregularity at the medial base of the second metatarsal on the AP view. If there is po int tenderness here, unable to exclude a nondisplaced fracture. Clinically correlate. 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 Osteopenia. Small posterior and plantar heel spurs.
[2023-07-28 15:15] VITALS: BP 177/76; PULSE 76
== END 2023-07-28 15:24 | disposition home or self-care (01) ==
LOC: EC 12:20
DX: S92.321A Displaced fracture of second metatarsal bone, right foot, initial encounter for closed fracture (principal); Z87.891 Personal history of nicotine dependence; Z88.5 Allergy status to narcotic agent; Z91.040 Latex allergy status; W01.0XXA Fall on same level from slipping, tripping and stumbling without subsequent striking against object, initial encounter
CPT/HCPCS: 99283; 29515; 96372 ×2; 73590; 73610; 73630; J1885; J1170

== ENCOUNTER → 2023-07-31 | Outpatient (CLI) | payer MEDICARE, BC ==
--- NOTE | 2023-07-31 09:18 | CT ---
EXAMINATION TYPE: CT foot RT wo con DATE OF EXAM: 07/31/2023 COMPARISON: X-ray 07/28/2023 HISTORY: SUBLUXATION OF TARSOMETATARSAL JOINT CT DLP: 198 mGycm Automated exposure control for dose reduction was used. FINDINGS: Osteopenia. Moderate to severe degenerative change first MCP joint. Some bony irregularity along the medial base of the second metatarsal on the AP view. Linear lucency through the base second metatarsal suggestive of fracture. Some dorsal soft tissue swelling is presen t. Some dorsal degenerative spurring at the mid foot. Tiny bony densities adjacent to the most medial cuneiform and base of the first metatarsal may repres ent additional chip fracture. There are additional tiny densities at the base of the third metatarsal which are too small to characterize. Occasional spur is noted. IMPRESSION: FINDINGS ARE SUGGESTIVE OF A FRACTURE LINE THROUGH THE BASE SECOND METATARSAL WITH MILD DISPLACEMENT. LISFRANC FRACTURE IN THE DIFFERENTIAL DIAGNOSIS MRI RECOMMENDED. TINY BONY DENSITIES ADJACENT TO THE MOST MEDIAL CUNEIFORM, BASE FIRST METATARSAL, BASE THIRD METATARS AL COULD REPRESENT TINY ADDITIONAL CHIP FRACTURES.
== END | disposition home or self-care (01) ==
LOC: RADCTMAIN 08:03
PROVIDERS: ATTEND Podiatrist
DX: S93.321A Subluxation of tarsometatarsal joint of right foot, initial encounter (principal); M25.571 Pain in right ankle and joints of right foot; X58.XXXA Exposure to other specified factors, initial encounter

== ENCOUNTER 2023-08-21 05:45 | Day surgery (SDC) | payer MEDICARE, BC ==
[2023-08-20 13:09] VITALS: BMI 26.6
[2023-08-21] MEDS: LACTATED RINGERS 1,000 ML IV SCH (07:00)
[2023-08-21] MEDS ORDERED: fentaNYL (PF) 50 MCG/ML 2 ML AMP IV PRN (07:00)
[2023-08-21] MEDS: ONDANSETRON 4 MG/2 ML VIAL IVP ONE (07:00)
[2023-08-21] MEDS: DEXAMETHASONE SOD PHOSPHATE 4 MG/ML 1 ML VIAL IVP STA (07:01)
[2023-08-21] MEDS: IV FLUID CONTINUATION 1,000 ML IV ONE (07:02)
[2023-08-21 07:07] LABS: Basophils % (A) 1 %; Eosinophils # (A) 0.4 k/uL (0-0.7); Eosinophils % (A) 6 %; HCT 41.5 % (34.0-46.0); HGB 13.6 gm/dL (11.4-16.0); Lymphocytes % (A) 16 %; MCH 32.1 pg (25.0-35.0); MCHC 32.7 g/dL (31.0-37.0); MCV 98.2 fL (80.0-100.0); Mean Platelet Volume 7.8; Monocytes # (A) 0.5 k/uL (0-1.0); Monocytes % (A) 8 %; Neutrophils # (A) 4.1 k/uL (1.3-7.7); Neutrophils % (A) 67 %; Platelet Count 180 k/uL (150-450); RBC 4.23 m/uL (3.80-5.40); RDW 13.5 % (11.5-15.5); WBC 6.1 k/uL (3.8-10.6)
[2023-08-21 07:22] LABS: ALT 77 U/L (4-34); AST 93 U/L (14-36); African American GFR (CKD) >90 (>60 ml/min/1.73 sqM); Albumin 4.1 g/dL (3.5-5.0); Alkaline Phosphatase 159 U/L (38-126); Anion Gap 2 mmol/L; Blood Urea Nitrogen 17 mg/dL (7-17); Calcium 9.2 mg/dL (8.4-10.2); Carbon Dioxide 27 mmol/L (22-30); Chloride 108 mmol/L (98-107); Glucose 101 mg/dL (74-99); Non-African American GFR(CKD) 84 (>60 ml/min/1.73 sqM); Potassium 4.1 mmol/L (3.5-5.1); Sodium 137 mmol/L (137-145); Total Bilirubin 0.7 mg/dL (0.2-1.3); Total Protein 6.8 g/dL (6.3-8.2)
[2023-08-21] MEDS: MIDAZOLAM 2 MG/2 ML VIAL IVP ONE (07:24)
[2023-08-21] MEDS: fentaNYL (PF) 50 MCG/ML 2 ML AMP IVP ONE (07:25)
[2023-08-21] MEDS ORDERED: PROPOFOL 10 MG/ML 20 ML VIAL IV ONE (07:28)
[2023-08-21] MEDS ORDERED: SUCCINYLCHOLINE CHLORIDE 200 MG/10 ML VIAL IV ONE (07:28)
[2023-08-21] MEDS ORDERED: ROPIVACAINE 5 MG/ML 30 ML VIAL ONE (07:28)
[2023-08-21] MEDS ORDERED: fentaNYL (PF) 50 MCG/ML 2 ML AMP ONE (07:28)
[2023-08-21] MEDS ORDERED: METOPROLOL TARTRATE 5 MG/5 ML VIAL IVP ONE (07:28)
[2023-08-21] MEDS ORDERED: SODIUM CHLORIDE 0.9% (PF) 10 ML VIAL ONE (07:28)
[2023-08-21] MEDS ORDERED: LIDOCAINE 1% INJ 10MG/ML (20 ML MDV) ONE (07:28)
--- NOTE | 2023-08-21 08:34 | P.OP ---
Date of Procedure: 08/21/23 Preoperative Diagnosis: tarsometatarsal joint dislocation right foot Postoperative Diagnosis: same Procedure(s) Performed: open reduction with internal fixation right tarsometatarsal joint dislocation Implants: 4.5 mm fully threaded solid screws 2 Anesthesia: ADAM Surgeon: Mir Martin Estimated Blood Loss (ml): 2 Pathology: none sent Condition: stable Disposition: PACU Description of Procedure: Prior to the patient being brought to the operating room, anesthesia administered a nerve block on the right lower extremity. The patient was brought into the operating room and placed on table in supine position. Timeout was taken to confirm correct patient identifiers, correct laterality of surgery, and correct procedure. Once all staff in the room were in agreement with the timeout, the patient was induced and placed under general anesthesia. A well- padded tourniquet was placed on the right ankle. A wedge was placed underneath the right hip to internally rotate the right leg. The right foot was then prepped and draped in the usual manner. the right foot was exsanguinated and the tourniquet inflated to 250 mmHg. Utilizing fluoroscopic visualization, a metallic marker was used to alex the lateral base of the second metatarsal as well as the medial aspect of the medial cuneiform. The first incision was made over the alex at the second metatarsal base. Then it was bluntly dissected around the lateral aspect of the base of the metatarsal. The hook portion of the reduction clamp was then inserted through the incision and placed along the lateral side of the second metatarsal base. Fluoroscopy confirmed the proper positioning of the hook. The second part of the reduction clamp was then connected and then aligned with the alex on the medial cuneiform. The tines of the clamp were then placed against the skin. Fluoroscopy was used to aligned it so that the trajectory of the screw would avoid the tarsometatarsal joints and enter the second metatarsal base. Once this was confirmed the reduction forceps were used to reduce the clamp and embed the tines into the medial cuneiform. Further forces placed on the forceps to reduce the dislocation. Fluoroscopic imaging confirmed the proper placement of the jig as well as reduction of the injury. A guidewire was placed in the jig and advanced to the lateral side of the base of the second metatarsal until it contacted the hook of the jig. Under drilling was performed first followed by over drilling for a 4.5 mm screw. The wire was removed and then the screw was inserted and advanced until the head engaged the medial cortex of the cuneiform and provided purchase into the second metatarsal. There was good screw purchase which allowed reduction and stabilization of the Lisfranc articulation. The jig was removed and then another guidewire was placed on the medial side of the cuneiform just proximal to the first screw. This was and intercuneiform screw, which was advanced from medial to lateral until it reached the lateral cortex of the intermediate cuneiform. Under drilling for another 4.5 mm screw was performed first followed by over drilling. The 4.5 mm screw was inserted into the drill hole and advanced until the head engaged the medial cortex of the cuneiform and provided compression at the intercuneiform articulation. There was good purchase of the screw when it was tightened. Final fluoroscopic imaging showed reduction of the injury as well as proper placement of the hardware. All wounds were thoroughly irrigated with antibiotic saline. The incisions were closed with 3-0 nylon. An Arthrex jumpstart dressing was placed over both incisions. A dry dressings applied to the right foot. The tourniquet was released and capillary refill return to all digits on the right foot. The patient was placed in a below-knee fracture boot with the ankle neutral position. Anesthesia was reversed. The patient tolerated the above procedure and anesthesia well. The patient went to recovery with vital signs stable.
[2023-08-21 08:50] VITALS: TEMP 97
[2023-08-21] MEDS: LABETALOL 5 MG/ML VIAL MDV IVP STA (09:04)
[2023-08-21 09:42] VITALS: RESP 16
[2023-08-21 10:34] VITALS: BP 166/79; PULSE 77
--- NOTE | 2023-08-21 11:35 | P.ANPRN ---
Procedure Note - Anesthesia - Nerve Block Performed Right Adductor Canal Single Time Out Performed: Yes (0724) Date of Procedure: 08/21/23 Procedure Start Time: Procedure Stop Time: Location of Patient: PreOp Indication: Acute Post-Operative Pain, Requested by Surgeon Specifically requested for management of pain by DrEliza: Mir Martin Sedation Type: Sedate with meaningful contact maintained Preparation: Sterile Prep Position: Supine Catheter: None Needle Types: Pajunk Needle Gauge: 21 Ultrasound used to visualize needle placement: Yes Ultrasound used to observe medication spread: Yes Injectate: 0.5% Ropivacaine (see comment for volume) (15cc +10cc nacl pf) Blood Aspirated: No Pain Paresthesia on Injection Noted: No Resistance on Injection: Normal Image Stored and Saved: Yes Events: Uneventful and Well Tolerated
== END 2023-08-21 10:30 | disposition home or self-care (01) ==
LOC: OR 05:45
PROVIDERS: ATTEND Podiatrist
DX: S93.324A Dislocation of tarsometatarsal joint of right foot, initial encounter (principal); G89.18 Other acute postprocedural pain; E03.9 Hypothyroidism, unspecified; K74.60 Unspecified cirrhosis of liver; I34.1 Nonrheumatic mitral (valve) prolapse; Z88.5 Allergy status to narcotic agent; Z87.891 Personal history of nicotine dependence; Z91.040 Latex allergy status; Z79.890 Hormone replacement therapy; Z79.899 Other long term (current) drug therapy; Z85.05 Personal history of malignant neoplasm of liver; W18.40XA Slipping, tripping and stumbling without falling, unspecified, initial encounter
CPT/HCPCS: 64447; 64445; 80053; 85025; 28615; C1713; J2250; J0330; J1100; J0690; J2405; J2001; J3010; J2795; J2704; J1920

== ENCOUNTER → 2023-12-21 | Outpatient (CLI) | payer MEDICARE, BC ==
--- NOTE | 2023-12-21 17:29 | CA ---
Transthoracic Echo Report Name: Harriet Weeks Age: 83 Gender: F : 1940 Exam Date: 12/21/2023 14:05 Exam Location: [place] [facility] Ht (in): 62 Wt (lb): 155 Ordering Physician: Saman Ngo MD Attending/Referring Phys: Saman Ngo MD Resource Recovery Specialist Jennifer Gurrola RDCS Procedure CPT: Indications: R06.09 Dyspnea Cardiac Hx: Technical Quality: Fair Contrast 1: Total Dose (mL): Contrast 2: Total Dose (mL): MEASUREMENTS (Male / Female) Normal Values 2D ECHO LV Diastolic Diameter PLAX 3.3 cm 4.2 - 5.9 / 3.9 - 5.3 cm LV Systolic Diameter PLAX 1.8 cm IVS Diastolic Thickness 1.3 cm 0.6 - 1.0 / 0.6 - 0.9 cm LVPW Diastolic Thickness 1.3 cm 0.6 - 1.0 / 0.6 - 0.9 cm LV Relative Wall Thickness 0.8 RV Internal Dim ED PLAX 2.8 cm LA Volume 57.4 cm??? 18 - 58 / 22 - 52 cm??? LA Volume Index 32.3 cm???/m??? 16 - 28 cm???/m??? M-MODE Aortic Root Diameter MM 2.0 cm LA Systolic Diameter MM 4.2 cm LA Ao Ratio MM 2.1 AV Cusp Separation MM 1.6 cm DOPPLER AV Peak Velocity 121.1 cm/s AV Peak Gradient 5.9 mmHg AV Mean Velocity 89.6 cm/s AV Mean Gradient 3.6 mmHg AV Velocity Time Integral 30.0 cm LVOT Peak Velocity 108.5 cm/s LVOT Peak Gradient 4.7 mmHg LVOT Velocity Time Integral 27.3 cm MV Area PHT 4.1 cm??? Mitral E Point Velocity 65.7 cm/s Mitral A Point Velocity 74.7 cm/s Mitral E to A Ratio 0.9 MV Deceleration Time 183.7 ms MV E' Velocity 5.6 cm/s Mitral E to MV E' Ratio 11.8 TR Peak Velocity 263.4 cm/s TR Peak Gradient 27.7 mmHg Right Ventricular Systolic Press 32.1 mmHg FINDINGS Left Ventricle Mildly increased left ventricular wall thickness. Left ventricular cavity size normal. Normal left ventricular systolic function with no obvious regional wall motion abnormalities. Left ventricular ejection fraction is estimated at 55-60 %. Right Ventricle Normal right ventricular size and function. Right Atrium Normal right atrial size. Left Atrium Mildly increased left atrial volume. Mildly increased left atrial area. Mitral Valve Structurally normal mitral valve. Mitral valve thickened. [id number] mitral regurgitation. Mild mitral annular calcification. Aortic Valve Trileaflet aortic valve. No aortic valve stenosis or regurgitation. Aortic valve sclerosis. Tricuspid Valve Structurally normal tricuspid valve. Trace tricuspid regurgitation. Pulmonic Valve Structurally normal pulmonic valve. Pericardium No thickening/calcification of the pericardium. No pericardial effusion. Aorta Normal size aortic root and proximal ascending aorta. CONCLUSIONS Normal LV function Mild to moderate mitral regurgitation Previewed by: Dr. Reese Yo MD (Electronically Signed) Final Date: 21 December 2023 17:28
== END | disposition home or self-care (01) ==
LOC: RADECHMAIN 13:55
PROVIDERS: ATTEND Internal Medicine
DX: R06.09 Other forms of dyspnea
CPT/HCPCS: 93306

== ENCOUNTER → 2024-04-18 | Outpatient (CLI) | payer MEDICARE, BC ==
--- NOTE | 2024-04-18 12:34 | MM ---
Reason for Exam: Screening (asymptomatic). Last mammogram was performed 2 year(s) and 7 month(s) ago. Patient History: Menarche at age 14. First Full-Term at age 23. Left ovary removed at age 48. Right ovary removed at age 48. Hysterectomy at age 48. Postmenopausal. Breast cancer, left, age 65. Other cancer, age 82. Previous chest radiation therapy at age 64. Estrogen, starting at age 49 for 12 years. Patient used Progesterone for 4 years. Tamoxifen for 5 years from age 65 until age 70. 01/12/2006, Excisional Biopsy on the Left side. 01/12/2006, Malignant Lumpectomy on the left side. 10/20/2014, Benign Core Biopsy on the right side. 12/22/2005, Malignant Core Biopsy on the left side. 2005, Radiation Therapy on the left side. Maternal aunt had breast cancer. Sister had breast cancer, age 60. Prior Study Comparison: 04/19/2019 Bilateral Screening Mammogram, [facility]. 09/04/2020 Bilateral Screening Mammogram, [facility]. 09/10/2021 Bilateral MG screening mammo w CAD, [facility]. Tissue Density: The breasts are heterogeneously dense, which may obscure small masses. Findings: Analyzed By CAD. Left breast surgical clips. Right breast clips breast clip. Right breast: There is no suspicious group of microcalcifications or new suspicious mass. Left breast: There is no suspicious group of microcalcifications or new suspicious mass. Overall Assessment: Benign, BI-RAD 2 Management: Screening Mammogram of both breasts in [address] [facility] will attempt to contact patient to return for supplemental views and ultrasound if indicated. Patient should continue monthly self-breast exams. A clinical breast exam by your physician is recommended on an annual basis. This exam should not preclude additional follow-up of suspicious palpable abnormalities. Note on Afsaneh scores and lifetime risk: 1. A Afsaneh score greater than 3% is considered moderate risk. If this is the case, consider specialist referral to assess eligibility for a risk reducing agent. 2. If overall lifetime risk for the development of breast cancer is 20% or higher, the patient may qualify for future screening with alternating mammogram and breast MRI. [facility], , 04/18/2024 12:31 PM. Electronically signed and approved by: Pan Conde DO
--- NOTE | 2024-04-18 15:58 | BD ---
EXAMINATION TYPE: Axial Bone Density DATE OF EXAM: 04/18/2024 CLINICAL HISTORY: 83 years old Female. ICD-10 CODE: M810 AGE-RELATED OSTEOPOROSIS , Additional Histo ry: Height: 61 Weight: 158 FRAX RISK QUESTIONS: History of Fracture in Adulthood: yes Secondary Osteoporosis: 3. Menopause before 45: yes RISK FACTORS HISTORY OF: MEDICATIONS: Thyroid Medications: Which medication: Synthroid How Long: about 10 years EXAM MEASUREMENTS: Bone mineral densitometry was performed using the [employer] System. Bone mineral density as measured about the Lumbar spine is: ----- L1-L4(G/cm2): 1.070 T Score Values are as follows: ----- L1: -0.3 ----- L2: -1.0 ----- L3: -0.8 ----- L4: -1.5 ----- L1-L4: -0.9 Z Score Values are as follows: ----- L1: 1.4 ----- L2: 0.6 ----- L3: 0.8 ----- L4: 0.1 ----- L1-L4: 0.7 Bone mineral density has: Increased 6.2% since study of: 04-19-19 Bone mineral density about the R hip (g/cm2): 0.691 Bone mineral density about the L hip (g/cm2): 0.685 T Score values are as follows: -----R Neck: -2.7 -----L Neck: -2.6 -----R Total: -2.5 -----L Total: -2.6 Z Score values are as follows: -----R Neck: -0.6 -----L Neck: -0.5 -----R Total: -0.5 -----L Total: -0.6 Bone mineral density has: Decreased -1.4% since study of: 04-19-19 FRAX%s: The graph provided illustrates a 28.3% chance for a major osteoporotic fx and a 10% chance fo r the hips probability for fx in 10 years time. IMPRESSION: Osteoporosis (T Score less than -2.5). There is increased fracture risk and therapy is usually indicated based on age. Re-Screen 1-2 years. NOTE: T-SCORE=SD OF THE YOUNG ADULT MEAN. [facility], , 04/18/2024 3:56 PM
== END | disposition home or self-care (01) ==
LOC: RADMAMWWP 11:37
PROVIDERS: ATTEND Internal Medicine
DX: Z12.31 Encounter for screening mammogram for malignant neoplasm of breast (principal); R92.333 Mammographic heterogeneous density, bilateral breasts; M81.0 Age-related osteoporosis without current pathological fracture; Z90.722 Acquired absence of ovaries, bilateral; Z78.0 Asymptomatic menopausal state; Z80.3 Family history of malignant neoplasm of breast; Z92.3 Personal history of irradiation
CPT/HCPCS: 77063; 77067; 77080

== ENCOUNTER 2024-05-31 13:32 | Inpatient (IN) | payer MEDICARE, BC ==
[2024-05-31 14:32] LABS: Basophils % (A) 0 %; Eosinophils # (A) 0.3 k/uL (0-0.7); Eosinophils % (A) 3 %; HCT 40.8 % (34.0-46.0); HGB 13.1 gm/dL (11.4-16.0); Lymphocytes # (A) 1.4 k/uL (1.0-4.8); Lymphocytes % (A) 16 %; MCH 30.7 pg (25.0-35.0); MCHC 32.1 g/dL (31.0-37.0); MCV 95.7 fL (80.0-100.0); Mean Platelet Volume 7.9; Monocytes # (A) 0.5 k/uL (0-1.0); Monocytes % (A) 6 %; Neutrophils # (A) 6.5 k/uL (1.3-7.7); Neutrophils % (A) 73 %; Platelet Count 223 k/uL (150-450); RBC 4.27 m/uL (3.80-5.40); RDW 14.1 % (11.5-15.5); WBC 8.9 k/uL (3.8-10.6)
[2024-05-31 14:45] LABS: ALT 65 U/L (4-34); AST 70 U/L (14-36); African American GFR (CKD) 75 (>60 ml/min/1.73 sqM); Alkaline Phosphatase 161 U/L (38-126); Anion Gap 9 mmol/L; Blood Urea Nitrogen 22 mg/dL (7-17); Calcium 9.5 mg/dL (8.4-10.2); Carbon Dioxide 23 mmol/L (22-30); Chloride 101 mmol/L (98-107); Creatine Kinase 64 U/L (30-135); Glucose 113 mg/dL (74-99); Non-African American GFR(CKD) 65 (>60 ml/min/1.73 sqM); Sodium 133 mmol/L (137-145); Total Bilirubin 0.9 mg/dL (0.2-1.3); Total Protein 6.9 g/dL (6.3-8.2)
--- NOTE | 2024-05-31 14:59 | XR ---
EXAMINATION TYPE: XR chest 2V DATE OF EXAM: 05/31/2024 2:39 PM COMPARISON: Chest radiographs from 03/14/2012 CLINICAL INDICATION: Female, 83 years old with history of altered mental status; [facility] TECHNIQUE: XR chest 2V Frontal and lateral views of the chest. FINDINGS: Lungs/Pleura: There is flattening of the diaphragm with increased lucency of the lungs. No evidence o f pneumothorax, pleural effusion or focal consolidation. Pulmonary vascularity: Unremarkable. Heart/mediastinum: Cardiomediastinal silhouette is unremarkable. Musculoskeletal: No acute osseous pathology. Other findings: None Lines/Tubes: IMPRESSION: 1. No acute cardiopulmonary disease process. 2. COPD changes. [facility], , 05/31/2024 2:57 PM
[2024-05-31 15:04] LABS: INR 1.1 (<1.2); Partial Thromboplastin Time 23.8 sec (22.0-30.0); Prothrombin Time 11.9 sec (10.0-12.5)
[2024-05-31] MEDS: SODIUM CHLORIDE 0.9% 1,000 ML IV ONE (16:10)
[2024-05-31 16:32] LABS: Influenza A Not Detected (Not Detectd); Influenza B Not Detected (Not Detectd); RSV Not Detected (Not Detectd)
--- NOTE | 2024-05-31 16:32 | ED ---
General Adult HPI - General Chief complaint: Neuro Symptoms/Deficit Stated complaint: weakness Time Seen by Provider: 05/31/24 15:10 Source: patient, family, RN notes reviewed, old records reviewed Mode of arrival: wheelchair Limitations: no limitations - History of Present Illness Initial comments: Patient is an 83-year-old female who presents emergency department complaining of multiple complaints. She states that suddenly at approximately 1 PM this afternoon she experienced a headache with head pressure sensation with some blurry vision and heart palpitations. Also had some lightheadedness as well as weakness and confusion. These of all symptoms resolved except for the brain fogginess feeling and generalized weakness. Was originally evaluated in the waiting room and workup started. NIH was 0 at that time according to nursing notes. Patient is not on blood thinners but does have a history of liver cancer and liver disease, thyroid disease. He has seen a hydrometer calibrator as well and is on metoprolol. No blood thinners. No obvious injuries. States she has had these headaches with the lightheadedness in the past however it was more severe today which is why she presented with family for further evaluation. Currently she is acting normally but does have some brain foggy feeling she describes with mild conversational confusion but is not grossly confused. Presents for further evaluation at this time. Denies chest pain, abdominal pain, nausea, vomiting, shortness of breath. - Related Data Home Medications Medication Instructions Recorded Confirmed ALPRAZolam [Xanax] 0.5 mg PO DAILY PRN 02/26/23 05/31/24 Escitalopram [Lexapro] 20 mg PO HS 02/26/23 05/31/24 Metoprolol Succinate (ER) [Toprol 25 mg PO HS 02/26/23 05/31/24 Xl] Budesonide/Formoterol Fumarate 2 puff INHALATION RT-BID 05/31/24 05/31/24 [Symbicort 160-4.5 Mcg Inhaler] Calcium Carbonate/Vitamin D3 1 tab PO DAILY 05/31/24 05/31/24 [Calcium 600 mg-Vit D3 10 mcg (400 Unit)] Cyclobenzaprine [Flexeril] 5 mg PO HS PRN 05/31/24 05/31/24 Isosorbide Mononitrate ER [Imdur] 30 mg PO DAILY 05/31/24 05/31/24 Levothyroxine Sodium [Synthroid] 88 mcg PO DAILY 05/31/24 05/31/24 Multivit-Min/FA/Lycopen/Lutein 1 tab PO DAILY 05/31/24 05/31/24 [Centrum Silver Tablet] Allergies Allergy/AdvReac Type Severity Reaction Status Date / Time codeine AdvReac Nausea & Verified 05/31/24 17:02 Vomiting latex AdvReac Rash/Hives Verified 05/31/24 17:02 Review of Systems ROS Statement: Those systems with pertinent positive or pertinent negative responses have been documented in the HPI. Review of Systems: CONST: Denies fever EYES: Denies blurry vision ENT: Denies nasal congestion C/V: Denies Chest pain RESP: Denies shortness of breath GI: Denies abdominal pain : Denies dysuria SKIN: Denies rash. MSK: Denies joint pain. NEURO: Endorses general weakness. Endorses resolved headache ROS Other: All systems not noted in ROS Statement are negative. 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 History of Any Multi-Drug Resistant Organisms: None Reported Past Surgical History: Breast Surgery, Section, Hysterectomy, Orthopedic Surgery Additional Past Surgical History / Comment(s): Shoulder surgery, lumpectomy left breast 2006, Liver ablation. Past Anesthesia/Blood Transfusion Reactions: No Reported Reaction Additional Past Anesthesia/Blood Transfusion Reaction / Comment(s): no blood transfusion reaction Past Psychological History: No Psychological Hx Reported Smoking Status: Former smoker Past Alcohol Use History: None Reported Past Drug Use History: None Reported - Past Family History Mother Family Medical History: No Reported History Sister(s) Family Medical History: Cancer Additional Family Medical History / Comment(s): Breast General Exam - General Exam Comments Initial Comments: General: Appears in no acute distress. HEAD: Normal with no signs of head trauma. EYES: PERRLA, EOMI, conjunctiva normal, no discharge. Pupils are 3 mm and equal bilaterally. ENT: Hearing grossly intact, normal oropharynx. RESPIRATORY: Clear breath sounds bilaterally. No wheezes, rales, or rhonchi. C/V: Regular rate and rhythm. S1 and S2 auscultated, no edema, peripheral pulses 2+ and intact throughout ABD: Abd is soft, nontender, nondistended EXT: Normal range of motion, no obvious deformity SKIN: No rashes or lesions observed on exposed skin. NEURO: Alert and oriented x 4. Cranial nerves II-XII intact. No focal sensory or strength deficits. NIH of 0. GCS of 15. Limitations: no limitations Course Vital Signs 05/31/24 05/31/24 05/31/24 13:39 15:47 18:11 Temperature 97.4 F L 97.8 F Pulse Rate 55 L 57 L 64 Pulse Rate [ Left Supine Pulse Oximetery ] Respiratory 18 16 18 Rate Blood Pressure 109/69 131/62 148/69 Blood Pressure [Left Arm Supine] O2 Sat by Pulse 97 95 98 Oximetry 05/31/24 05/31/24 20:00 20:52 Temperature 98.1 F Pulse Rate 60 Pulse Rate [ 62 Left Supine Pulse Oximetery ] Respiratory 17 17 Rate Blood Pressure 149/67 Blood Pressure 170/78 [Left Arm Supine] O2 Sat by Pulse 97 97 Oximetry Medical Decision Making - Medical Decision Making Was pt. sent in by a medical professional or institution (, PA, [facility], urgent care, hospital, or [facility]...) When possible be specific @ -No Did you speak to anyone other than the patient for history (EMS, parent, family, police, friend...)? What history was obtained from this source @ -Patient's children as well as assist with patient's past medical history. Did you review nursing and triage notes (agree or disagree)? Why? @ -I reviewed and agree with nursing and triage notes Were old charts reviewed (outside hosp., previous admission, EMS record, old EKG, old radiological studies, urgent care reports/EKG's, [facility] records)? Report findings @ -Compared with EKG from July 2023. It does look improved, as T wave inversions that were on that EKG have now resolved. Differential Diagnosis (chest pain, altered mental status, abdominal pain women, abdominal pain men, vaginal bleeding, weakness, fever, dyspnea, syncope, headache, dizziness, GI bleed, back pain, seizure, CVA, palpatations, mental health, musculoskeletal)? @ -Differential Weakness: Hypoglycemia, shock, sepsis, hyponatremia, anemia, infection, PR, ETOH, adverse medicine reaction, overdose, stroke, this is not meant to be an all-inclusive list. EKG interpreted by me (3pts min.). @ -As above X-rays interpreted by me (1pt min.). @ -Chest x-ray reveals no obvious acute cardiopulmonary process CT interpreted by me (1pt min.). @ -CT brain, CT angiogram head and neck negative for any obvious acute process. U/S interpreted by me (1pt. min.). @ -None done What testing was considered but not performed or refused? (CT, X-rays, U/S, labs)? Why? @ -None What meds were considered but not given or refused? Why? @ -None Did you discuss the management of the patient with other professionals (professionals i.e. , PA, [employer], lab, RT, psych nurse, director of social media marketing, melt house centrifugal operator, teacher, policy officer, case management coordinator)? Give summary @ -I discussed case with the admitting provider, Dr. Ngo who accepted admission. Was smoking cessation discussed for >3mins.? @ -No Was critical care preformed (if so, how long)? @ -No Were there social determinants of health that impacted care today? How? (Homelessness, low income, unemployed, alcoholism, drug addiction, transportation, low edu. Level, literacy, decrease access to med. care, group home, rehab)? @ -No Was there de-escalation of care discussed even if they declined (Discuss DNR or withdrawal of care, Hospice)? DNR status @ -No What co-morbidities impacted this encounter? (DM, HTN, Smoking, COPD, CAD, Cancer, CVA, ARF, Chemo, Hep., AIDS, mental health diagnosis, sleep apnea, morbid obesity)? @ -History of liver cancer and liver disease Was patient admitted / discharged? Hospital course, mention meds given and route, prescriptions, significant lab abnormalities, going to OR and other pertinent info. @ -Patient presents emergency department with sudden onset headache, weakness, lightheaded dizziness. Has been having headaches with a lightheaded dizziness however was worse today. Is also feeling generally weak. States she has brain fog currently and feels weak. Denies any head injuries. Workup chart was patient was in triage which included basic labs, EKG, chest x-ray. These workup was unremarkable. Will add on ammonia, alcohol, urinalysis, viral swabs as well as CT imaging of the brain. Patient was in agreement this plan. She was given IV fluids at this time. Vital signs are within acceptable limits. EKG showed no signs of acute ischemia.Chest x-ray unremarkable. CT imaging unremarkable. Laboratory studies returned remarkable for possible early UTI but otherwise unremarkable. Discussed results with family as well as patient. She is still feeling dazed and has intermittent conversational confusion. This is below her baseline. Th erefore we will admit for neurology evaluation. Patient started empirically on antibiotics and urine culture sent. Patient and family were in agreement this plan. I discussed case with the admitting provider, Dr. Ngo who accepted admission. Undiagnosed new problem with uncertain prognosis? @ -No Drug Therapy requiring intensive monitoring for toxicity (Heparin, Nitro, Insulin, Cardizem)? @ -No Were any procedures done? @ -No Diagnosis/symptom? @ -UTI, confusion Acute, or Chronic, or Acute on Chronic? @ -Acute Uncomplicated (without systemic symptoms) or Complicated (systemic symptoms)? @ -Complicated Side effects of treatment? @ -None Exacerbation, Progression, or Severe Exacerbation] @ -No Poses a threat to life or bodily function? @ -Potentially, yes - Lab Data Result diagrams: 05/31/24 14:10 05/31/24 14:10 Lab Results 05/31/24 05/31/24 05/31/24 Range/Units 14:10 14:10 14:10 WBC 8.9 (3.8-10.6) k/uL RBC 4.27 (3.80-5.40) m/uL Hgb 13.1 (11.4-16.0) gm/dL Hct 40.8 (34.0-46.0) % MCV 95.7 (80.0-100.0) fL MCH 30.7 (25.0-35.0) pg MCHC 32.1 (31.0-37.0) g/dL RDW 14.1 (11.5-15.5) % Plt Count 223 (150-450) k/uL MPV 7.9 Neutrophils % 73 % Lymphocytes % 16 % Monocytes % 6 % Eosinophils % 3 % Basophils % 0 % Neutrophils # 6.5 (1.3-7.7) k/uL Lymphocytes # 1.4 (1.0-4.8) k/uL Monocytes # 0.5 (0-1.0) k/uL Eosinophils # 0.3 (0-0.7) k/uL Basophils # 0.0 (0-0.2) k/uL PT 11.9 (10.0-12.5) sec INR 1.1 (<1.2) APTT 23.8 (22.0-30.0) sec Sodium 133 L (137-145) mmol/L Potassium 5.0 (3.5-5.1) mmol/L Chloride 101 (98-107) mmol/L Carbon Dioxide 23 (22-30) mmol/L Anion Gap 9 mmol/L BUN 22 H (7-17) mg/dL Creatinine 0.84 (0.52-1.04) mg/dL Est GFR (CKD-EPI)AfAm 75 (>60 ml/min/1.73 sqM) Est GFR (CKD-EPI)NonAf 65 (>60 ml/min/1.73 sqM) Glucose 113 H (74-99) mg/dL Calcium 9.5 (8.4-10.2) mg/dL Total Bilirubin 0.9 (0.2-1.3) mg/dL AST 70 H (14-36) U/L ALT 65 H (4-34) U/L Alkaline Phosphatase 161 H (38-126) U/L Ammonia (<30) umol/L Creatine Kinase 64 (30-135) U/L Troponin I (0.000-0.034) ng/mL Total Protein 6.9 (6.3-8.2) g/dL Albumin 4.0 (3.5-5.0) g/dL Urine Color Urine Appearance (Clear) Urine pH (5.0-8.0) Ur Specific Mcdaniel (1.001-1.035) Urine Protein (Negative) Urine Glucose (UA) (Negative) Urine Ketones (Negative) Urine Blood (Negative) Urine Nitrite (Negative) Urine Bilirubin (Negative) Urine Urobilinogen (<2.0) mg/dL Ur Leukocyte Esterase (Negative) Urine RBC (0-5) /hpf Urine WBC (0-5) /hpf Ur Squamous Epith Cells (0-4) /hpf Urine Mucus (None) /hpf Urine Opiates Screen (NotDetected) Ur Oxycodone Screen (NotDetected) Urine Methadone Screen (NotDetected) Ur Barbiturates Screen (NotDetected) U Tricyclic Antidepress (NotDetected) Ur Phencyclidine Scrn (NotDetected) Ur Amphetamines Screen (NotDetected) U Methamphetamines Scrn (NotDetected) U Benzodiazepines Scrn (NotDetected) Urine Cocaine Screen (NotDetected) U Marijuana (THC) Screen (NotDetected) Serum Alcohol mg/dL Influenza Type A (PCR) (Not Detectd) Influenza Type B (PCR) (Not Detectd) RSV (PCR) (Not Detectd) SARS-CoV-2 (PCR) (Not Detectd) 05/31/24 05/31/24 05/31/24 Range/Units 14:10 15:41 15:41 WBC (3.8-10.6) k/uL RBC (3.80-5.40) m/uL Hgb (11.4-16.0) gm/dL Hct (34.0-46.0) % MCV (80.0-100.0) fL MCH (25.0-35.0) pg MCHC (31.0-37.0) g/dL RDW (11.5-15.5) % Plt Count (150-450) k/uL MPV Neutrophils % % Lymphocytes % % Monocytes % % Eosinophils % % Basophils % % Neutrophils # (1.3-7.7) k/uL Lymphocytes # (1.0-4.8) k/uL Monocytes # (0-1.0) k/uL Eosinophils # (0-0.7) k/uL Basophils # (0-0.2) k/uL PT (10.0-12.5) sec INR (<1.2) APTT (22.0-30.0) sec Sodium (137-145) mmol/L Potassium (3.5-5.1) mmol/L Chloride (98-107) mmol/L Carbon Dioxide (22-30) mmol/L Anion Gap mmol/L BUN (7-17) mg/dL Creatinine (0.52-1.04) mg/dL Est GFR (CKD-EPI)AfAm (>60 ml/min/1.73 sqM) Est GFR (CKD-EPI)NonAf (>60 ml/min/1.73 sqM) Glucose (74-99) mg/dL Calcium (8.4-10.2) mg/dL Total Bilirubin (0.2-1.3) mg/dL AST (14-36) U/L ALT (4-34) U/L Alkaline Phosphatase (38-126) U/L Ammonia <9 (<30) umol/L Creatine Kinase (30-135) U/L Troponin I <0.012 (0.000-0.034) ng/mL Total Protein (6.3-8.2) g/dL Albumin (3.5-5.0) g/dL Urine Color Urine Appearance (Clear) Urine pH (5.0-8.0) Ur Specific Mcdaniel (1.001-1.035) Urine Protein (Negative) Urine Glucose (UA) (Negative) Urine Ketones (Negative) Urine Blood (Negative) Urine Nitrite (Negative) Urine Bilirubin (Negative) Urine Urobilinogen (<2.0) mg/dL Ur Leukocyte Esterase (Negative) Urine RBC (0-5) /hpf Urine WBC (0-5) /hpf Ur Squamous Epith Cells (0-4) /hpf Urine Mucus (None) /hpf Urine Opiates Screen (NotDetected) Ur Oxycodone Screen (NotDetected) Urine Methadone Screen (NotDetected) Ur Barbiturates Screen (NotDetected) U Tricyclic Antidepress (NotDetected) Ur Phencyclidine Scrn (NotDetected) Ur Amphetamines Screen (NotDetected) U Methamphetamines Scrn (NotDetected) U Benzodiazepines Scrn (NotDetected) Urine Cocaine Screen (NotDetected) U Marijuana (THC) Screen (NotDetected) Serum Alcohol <10 mg/dL Influenza Type A (PCR) (Not Detectd) Influenza Type B (PCR) (Not Detectd) RSV (PCR) (Not Detectd) SARS-CoV-2 (PCR) (Not Detectd) 05/31/24 05/31/24 Range/Units 15:41 16:41 WBC (3.8-10.6) k/uL RBC (3.80-5.40) m/uL Hgb (11.4-16.0) gm/dL Hct (34.0-46.0) % MCV (80.0-100.0) fL MCH (25.0-35.0) pg MCHC (31.0-37.0) g/dL RDW (11.5-15.5) % Plt Count (150-450) k/uL MPV Neutrophils % % Lymphocytes % % Monocytes % % Eosinophils % % Basophils % % Neutrophils # (1.3-7.7) k/uL Lymphocytes # (1.0-4.8) k/uL Monocytes # (0-1.0) k/uL Eosinophils # (0-0.7) k/uL Basophils # (0-0.2) k/uL PT (10.0-12.5) sec INR (<1.2) APTT (22.0-30.0) sec Sodium (137-145) mmol/L Potassium (3.5-5.1) mmol/L Chloride (98-107) mmol/L Carbon Dioxide (22-30) mmol/L Anion Gap mmol/L BUN (7-17) mg/dL Creatinine (0.52-1.04) mg/dL Est GFR (CKD-EPI)AfAm (>60 ml/min/1.73 sqM) Est GFR (CKD-EPI)NonAf (>60 ml/min/1.73 sqM) Glucose (74-99) mg/dL Calcium (8.4-10.2) mg/dL Total Bilirubin (0.2-1.3) mg/dL AST (14-36) U/L ALT (4-34) U/L Alkaline Phosphatase (38-126) U/L Ammonia (<30) umol/L Creatine Kinase (30-135) U/L Troponin I (0.000-0.034) ng/mL Total Protein (6.3-8.2) g/dL Albumin (3.5-5.0) g/dL Urine Color Yellow Urine Appearance Clear (Clear) Urine pH 7.0 (5.0-8.0) Ur Specific Mcdaniel 1.025 (1.001-1.035) Urine Protein Negative (Negative) Urine Glucose (UA) Negative (Negative) Urine Ketones Negative (Negative) Urine Blood Negative (Negative) Urine Nitrite Negative (Negative) Urine Bilirubin Negative (Negative) Urine Urobilinogen 6.0 (<2.0) mg/dL Ur Leukocyte Esterase Large H (Negative) Urine RBC 1 (0-5) /hpf Urine WBC 22 H (0-5) /hpf Ur Squamous Epith Cells 2 (0-4) /hpf Urine Mucus Occasional H (None) /hpf Urine Opiates Screen Detected H (NotDetected) Ur Oxycodone Screen Not Detected (NotDetected) Urine Methadone Screen Not Detected (NotDetected) Ur Barbiturates Screen Not Detected (NotDetected) U Tricyclic Antidepress Detected H (NotDetected) Ur Phencyclidine Scrn Not Detected (NotDetected) Ur Amphetamines Screen Not Detected (NotDetected) U Methamphetamines Scrn Not Detected (NotDetected) U Benzodiazepines Scrn Detected H (NotDetected) Urine Cocaine Screen Not Detected (NotDetected) U Marijuana (THC) Screen Detected H (NotDetected) Serum Alcohol mg/dL Influenza Type A (PCR) Not Detected (Not Detectd) Influenza Type B (PCR) Not Detected (Not Detectd) RSV (PCR) Not Detected (Not Detectd) SARS-CoV-2 (PCR) Not Detected (Not Detectd) - EKG Data -: EKG Interpreted by Me EKG Comments: 12-lead Electrocardiogram Interpretation Note EKG was reviewed and interpreted by myself. 12-lead ECG performed at 1355 is interpreted by me as revealing sinus bradycardia at a rate of 53 beats per minute. [place] is normal. TN interval is 145 ms, QRS duration 79 ms, QTc is 450 ms.. There were no ST or T wave abnormalities to suggest myocardial ischemia or injury. R wave progression across the precordium was satisfactory. By my interpretation this EKG is non-diagnostic for acute ischemia. Disposition Clinical Impression: UTI (urinary tract infection), Confusion Disposition: ADMITTED IP TO THIS HOSP Condition: Stable Time of Disposition: 19:12
[2024-05-31 17:00] LABS: Appearance,Urine Clear (Clear); Bilirubin,Urine Negative (Negative); Blood,Urine Negative (Negative); Color,Urine Yellow; Glucose,Urine (UA) Negative (Negative); Ketones,Urine Negative (Negative); Leukocyte Esterase,Urine Large (Negative); Mucus,Urine Occasional /hpf; Nitrite,Urine Negative (Negative); Protein,Urine Negative (Negative); RBC,Urine 1 /hpf (0-5); Specific Gravity,Urine 1.025 (1.001-1.035); Squamous Epithelial Cell,Urine 2 /hpf (0-4); WBC,Urine 22 /hpf (0-5)
[2024-05-31 17:05] LABS: Amphetamine Screen,Urine Not Detected (NotDetected); Barbiturate Screen,Urine Not Detected (NotDetected); Benzodiazepines Screen,Urine Detected (NotDetected); Cocaine Screen,Urine Not Detected (NotDetected); Methadone Screen, Urine Not Detected (NotDetected); Opiate Screen,Urine Detected (NotDetected); Oxycodone Screen, Urine Not Detected (NotDetected); Phencyclidine Screen,Urine Not Detected (NotDetected); Tricyclic Antidepressant,Urine Detected (NotDetected); Urn Cannabinoid Scrn Detected (NotDetected)
--- NOTE | 2024-05-31 17:44 | CT ---
EXAMINATION TYPE: CT brain wo con DATE OF EXAM: 05/31/2024 5:35 PM COMPARISON: 02/23/2021. CLINICAL INDICATION: Female, 83 years old with history of Altered mental status, double vision, sever e headache/pounding, heart palpitations, dizziness, weakness and confusion x 1 hour TECHNIQUE: Brain: Axial CT images of the brain were obtained with coronal and sagittal reformats created and rev iewed. Contrast used: None. Oral contrast used: None. CT DLP: 1464.3 mGycm, Automated exposure control for dose reduction was used. FINDINGS: Brain: Extra-axial spaces: No abnormal extra-axial fluid collections. Ventricular system: Dilatation in proportion to cerebral atrophy. Cerebral parenchyma: Cerebral atrophy. No acute intraparenchymal hemorrhage or mass effect. The gasca -white junction is well differentiated. Scattered hypoattenuating areas are seen within the white mat ter. Cerebellum: Unremarkable. Mass effect: No evidence of midline shift. Intracranial vasculature: unremarkable Soft tissues: Normal. Calvarium/osseous structures: No depressed skull fracture. Paranasal sinuses and mastoid air cells: Mild scattered paranasal sinus disease. Visualized orbits: Orbital contents are intact. IMPRESSION: 1. No acute intracranial process. 2. Nonspecific white matter changes, likely secondary to chronic small vessel ischemic disease. [facility], , 05/31/2024 5:41 PM
--- NOTE | 2024-05-31 18:26 | CT ---
EXAMINATION TYPE: CT angio head neck DATE OF EXAM: 05/31/2024 6:03 PM COMPARISON: CT brain same day.. CLINICAL INDICATION: Female, 83 years old with history of headache, confusion; PHH, double vision, se keshawn headache/pounding, heart palpitations, dizziness, weakness and confusion x 1 hour TECHNIQUE: Axially acquired helical CT angiogram of the head and neck was obtained with contrast. Axi al images are supplemented with 3D reconstructions and MIP images which were post-processed at an in dependent workstation. NASCET criteria used. Contrast used:65 mL of Isovue 370 without and with IV Contrast, Oral contrast used: None. CT DLP: 1464.3 mGycm, Automated exposure control for dose reduction was used. FINDINGS: CTA HEAD: No evidence of acute intracranial hemorrhage, mass effect, or midline shift. The ventricles, sulci, a nd cisterns are unremarkable. Vertebral arteries: The vertebral arteries are patent. Vertebral artery dominance: Left Basilar artery: The basilar artery is intact. The basilar artery bifurcation is normal. Internal Carotid arteries: The cervical, petrous, cavernous and supraclinoid segments are normal. COBY: Patent with no evidence of aneurysm. ACOM: Present without evidence of aneurysm. MCA: Patent with no evidence of aneurysm. FREQUENCY CHECKER: Patent with no evidence of aneurysm. PCOM: Hypoplastic bilaterally. Dural sinuses: Patent. CTA NECK: Right Carotid System: The common carotid artery and external carotid artery are patent. The carotid bifurcation demonstrate s no evidence of hemodynamically significant stenosis. The remaining portions of the internal carotid artery demonstrate normal size without significant narrowing. Left Carotid System: The common carotid artery and external carotid artery are patent. The carotid bifurcation demonstrate s no evidence of hemodynamically significant stenosis. The remaining portions of the internal carotid artery demonstrate normal size without significant narrowing. Vertebral arteries are patent without evidence hemodynamically significant stenosis. Dominant left ve rtebral artery system. There is a three-vessel aortic arch. The origins of the great vessels are patent. No evidence of hemo dynamically significant stenosis. Upper thorax: IMPRESSION: 1. No evidence of dissection of the cervical internal carotid arteries or vertebral arteries. 2. No any evidence of significant stenosis at the carotid bifurcations. 3. No evidence of intracranial high-grade stenosis or intracranial aneurysm. [facility], , 05/31/2024 6:23 PM
[2024-05-31] MEDS ORDERED: NALOXONE 0.4 MG/ML 1 ML VIAL IV PRN (19:12)
[2024-05-31] MEDS: SODIUM CHLORIDE 0.9% 1,000 ML IV STA (19:26)
[2024-05-31] MEDS: SYMBICORT 160-4.5 MCG INHALER INHALATION SCH (20:23)
[2024-05-31] MEDS: ALPRAZolam 0.5 MG TAB PO PRN (21:28)
[2024-05-31] MEDS: ESCITALOPRAM 20 MG TAB PO SCH (21:28)
[2024-05-31] MEDS: METOPROLOL SUCCINATE (ER) 25 MG TAB.ER.24H PO SCH (21:28)
[2024-05-31] MEDS: ONDANSETRON 4 MG/2 ML VIAL IVP PRN (23:46)
[2024-06-01] MEDS: CYCLOBENZAPRINE 5 MG TAB PO PRN (00:37)
[2024-06-01] MEDS: LEVOTHYROXINE 88 MCG TAB PO SCH (05:33)
[2024-06-01] MEDS: PANTOPRAZOLE 40 MG TABLET PO SCH (05:33)
--- NOTE | 2024-06-01 06:06 | P.HPIM ---
History of Present Illness H&P Date: 05/31/24 Chief Complaint: Headache/confusion/cystitis HISTORY OF PRESENT ILLNESS: This is an 83-year-old female with a previous medical history significant for hypertension and hypertensive cardiovascular disease, hyperlipidemia, hypothyroidism, history of hepatocellular carcinoma status post radiofrequency ablation has been under the care of Dr. Dillard at [facility] with a surveillance CT scan of the abdomen that was done recently about a month ago and she will go back in 6-month has been in remission cirrhosis of the liver without ascites irritable bowel syndrome with constipation, spondylosis of the lumbar spine for which she took 1 [place] from her last prescription allergic rhinitis, anxiety disorder, GERD, patient stated that she was sitting in her chair trying to read something, and all of a sudden started to have some headache and she felt laterally of her head is ballooning out on the right side, at the same time she became somewhat dizzy and nauseated she took up from her chair with her and asked for help, who had brought her to the ER for evaluation patient initially had a CT scan of the brain did not show evidence of acute abnormalities CT angiography did not show evidence of any dissection or aneurysm, laboratory evaluation were negative, she was found to have a minimal leukocytes in the urine, without urinary tract infection symptoms, patient was started on IV fluid resuscitation, she was started on Rocephin 2 g IV piggyback every 24 hours in the ER, she was admitted as an observation for evaluation MRI of the brain with and without contrast was obtained to rule out any acute ischemic event. REVIEW OF SYSTEMS: Constitutional: No documented fever, no chills, no night sweats. No weight change. No weakness, fatigue or lethargy. No daytime sleepiness. EENT: positive for headache. No blurred vision or double vision, no loss of vision. No loss of Hearing, no ringing in the ears, no dizziness. No nasal drainage or congestion. No epistaxis. No sore throat. Lungs: No shortness of breath, no cough, no sputum production. No wheezing. Reports dyspnea with activity. Cardiovascular: No chest pain, no lower extremity edema. No palpitations. No paroxysmal nocturnal dyspnea. No orthopnea. No lightheadedness or dizziness. No syncopal episodes. Abdominal: Reports no abdominal pain. No nausea, vomiting. No diarrhea. occasional constipation. No bloody or tarry stools reports loss of appetite. Genitourinary: No dysuria, increased frequency,no urgency. No urinary retention. Musculoskeletal: No myalgias. No muscle weakness, no gait dysfunction, no frequent falls. positive for back pain. No neck pain. Integumentary: No wounds, no lesions. No rash or pruritus. No unusual bruising. No change in hair or nails. Neurologic: No aphasia. No facial droop. positive for change in mentation. No head injury. positive for headache. No paralysis. No paresthesia. Psychiatric: No depression. positive for anxiety. No mood swings. Endocrine: No abnormal blood sugars. No weight change. PAST MEDICAL HISTORY: Hypertension and hypertensive cardiovascular disease. Mixed hyperlipidemia. Hypothyroidism. Hepatocellular carcinoma. Cirrhosis of liver without ascites. Irritable bowel syndrome with constipation. Anxiety Allergic rhinitis GERD Spondylosis of the lumbar spine PAST SURGICAL HISTORY: x 2 Total hysterectomy. Right rotator cuff tear repair Left breast lumpectomy Cryo therapy of the liver 11/09/2022 for HCC Foot ligament surgery on the right 2023 SOCIAL HISTORY: Patient is a lifelong non-smoker, she used to drink 2 glasses of wine on a daily basis, but she has not done this after she was diagnosed with HCC, she denies any drug use or abuse. He was surprised that she has THC in her urine. FAMILY HISTORY: Father at age 97 from old age mother at the age of 98 from congestive heart failure patient has 1 brother who is 84-year-old patient had 3 sisters 1 lives in [place] and at the age of 88 from dementia and 1 is overweight and the third 1 is 88-year-old., Patient has 1 daughter 1 son no major medical problems. PHYSICAL EXAMINATION: General: 83-year-old laying down in bed in no apparent distress. HEENT: Head is atraumatic, normocephalic, pupils were equal round reactive to light and recommendation, extraocular muscle movement were intact, sclera nonicteric, conjunctivae were pale, mucous membranes of the mouth are somewhat dry. Neck: Supple, no JVP, normal carotid upstroke bilaterally, no lymphadenopathy. Chest: Decreased breath sounds at the bases, few rhonchi, no expiratory wheezes, no chest wall tenderness, no intercostal retractions. Heart: First heart sound is normal, second heart sound is normal there is systolic ejection murmur 2/6 located in the left sternal border. Abdomen: Soft, nontender, nondistended, positive bowel sounds. Extremities: There is no edema no calf tenderness DP +2 bilaterally. Neurologic examination: Patient is awake alert and oriented x3, cranial nerves II-12 appear grossly intact, muscle power were 5 out of 5 in upper extremities and 5 out of 5 in bilateral lower extremities, deep tendon reflexes normal bilaterally. ASSESSMENT AND PLAN: 1. Acute vascular headache with confusional state possible TIA rule out CVA. Patient did have a CT scan of the brain in the ER did not show evidence of acute abnormalities only ischemic white matter changes, CT angiography of the neck and the brain did not show evidence of any dissection or aneurysm, patient was started on aspirin 81 mg once every day, patient also will be scheduled for MRI of the brain with and without dio for further evaluation, neurology consultation was obtained as well, patient had refused statins in the past which I will re commend again. 2. Mild cystitis without symptoms of UTI. Await the final result of the culture patient was started on ceftriaxone 2 g piggyback every 24 hours. 3. Hypertension and hypertensive cardiovascular disease. Continue metoprolol ER 25 mg at bedtime. Monitor the patient blood pressure very closely. 4. Hyperlipidemia. Patient has refused statin in the past, we will check lipid panel. 5. Hypothyroidism. Continue Synthroid 75 mcg orally once every day. 6. Hepatocellular carcinoma under the care of Dr. Dillard at [facility] status post radiofrequency ablation on October 2022 currently in remission. 7. History of liver cirrhosis without ascites. Ammonia level appears normal. 8. Spondylosis of the lumbar spine stable at this time. 9. GERD. Will start the patient on Protonix 40 mg once every day. 10. Anxiety disorder. Continue patient on Escitalopram 20 mg once every day and Xanax 0.5 mg at bedtime. 11. DVT prophylaxis. Lovenox 40 mg subcutaneous every 24 hours. 12. GI prophylaxis. Continue patient on Protonix 40 mg once every day. 13. Observation. 14. Code. 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 History of Any Multi-Drug Resistant Organisms: None Reported Past Surgical History: Breast Surgery, Section, Hysterectomy, Orthopedic Surgery Additional Past Surgical History / Comment(s): Shoulder surgery, lumpectomy left breast 2007, Liver ablation. Past Anesthesia/Blood Transfusion Reactions: No Reported Reaction Additional Past Anesthesia/Blood Transfusion Reaction / Comment(s): no blood transfusion reaction Past Psychological History: No Psychological Hx Reported Smoking Status: Former smoker Past Alcohol Use History: None Reported Past Drug Use History: None Reported - Past Family History Mother Family Medical History: No Reported History Sister(s) Family Medical History: Cancer Additional Family Medical History / Comment(s): Breast Medications and Allergies Home Medications Medication Instructions Recorded Confirmed Type ALPRAZolam [Xanax] 0.5 mg PO DAILY PRN 02/26/23 05/31/24 History Escitalopram [Lexapro] 20 mg PO HS 02/26/23 05/31/24 History Metoprolol Succinate (ER) [Toprol 25 mg PO HS 02/26/23 05/31/24 History Xl] Budesonide/Formoterol Fumarate 2 puff INHALATION RT-BID 05/31/24 05/31/24 History [Symbicort 160-4.5 Mcg Inhaler] Calcium Carbonate/Vitamin D3 1 tab PO DAILY 05/31/24 05/31/24 History [Calcium 600 mg-Vit D3 10 mcg (400 Unit)] Cyclobenzaprine [Flexeril] 5 mg PO HS PRN 05/31/24 05/31/24 History Isosorbide Mononitrate ER [Imdur] 30 mg PO DAILY 05/31/24 05/31/24 History Levothyroxine Sodium [Synthroid] 88 mcg PO DAILY 05/31/24 05/31/24 History Multivit-Min/FA/Lycopen/Lutein 1 tab PO DAILY 05/31/24 05/31/24 History [Centrum Silver Tablet] Allergies Allergy/AdvReac Type Severity Reaction Status Date / Time codeine AdvReac Nausea & Verified 05/31/24 17:02 Vomiting latex AdvReac Rash/Hives Verified 05/31/24 17:02 Physical Exam Vitals: Vital Signs Temp Pulse Resp BP Pulse Ox 05/31/24 18:11 64 18 148/69 98 05/31/24 15:47 97.8 F 57 L 16 131/62 95 05/31/24 13:39 97.4 F L 55 L 18 109/69 97 Intake and Output 05/31/24 05/31/24 05/31/24 06:59 14:59 22:59 Other: Weight 68.039 kg Results CBC & Chem 7: 05/31/24 14:10 05/31/24 14:10 Labs: Abnormal Lab Results - Last 24 Hours (Table) 05/31/24 05/31/24 Range/Units 14:10 16:41 Sodium 133 L (137-145) mmol/L BUN 22 H (7-17) mg/dL Glucose 113 H (74-99) mg/dL AST 70 H (14-36) U/L ALT 65 H (4-34) U/L Alkaline Phosphatase 161 H (38-126) U/L Ur Leukocyte Esterase Large H (Negative) Urine WBC 22 H (0-5) /hpf Urine Mucus Occasional H (None) /hpf Urine Opiates Screen Detected H (NotDetected) U Tricyclic Antidepress Detected H (NotDetected) U Benzodiazepines Scrn Detected H (NotDetected) U Marijuana (THC) Screen Detected H (NotDetected)
[2024-06-01] MEDS: ENOXAPARIN 40 MG/0.4 ML SYRINGE SQ SCH (08:08)
[2024-06-01] MEDS: ISOSORBIDE MONONITRATE ER 30 MG TAB.ER.24H PO SCH (08:09)
[2024-06-01] MEDS: MULTIVITAMINS, THERA 1 EACH TAB PO SCH (08:09)
[2024-06-01] MEDS: CALCIUM CARB-VIT D 500 MG-5 MCG TAB PO SCH (08:09)
--- NOTE | 2024-06-01 09:54 | P.PN ---
Subjective Progress Note Date: 06/01/24 HISTORY OF PRESENT ILLNESS: This is an 83-year-old female with a previous medical history signi ficant for hypertension and hypertensive cardiovascular disease, hyperlipidemia, hypothyroidism, history of hepatocellular carcinoma status post radiofrequency ablation has been under the care of Dr. Dillard at [facility] with a surveillance CT scan of the abdomen that was done recently about a month ago and she will go back in 6-month has been in remission cirrhosis of the liver without ascites irritable bowel syndrome with constipation, spondylosis of the lumbar spine for which she took 1 [place] from her last prescription allergic rhinitis, anxiety disorder, GERD, patient stated that she was sitting in her chair trying to read something, and all of a sudden started to have some headache and she felt laterally of her head is ballooning out on the right side, at the same time she became somewhat dizzy and nauseated she took up from her chair with her and asked for help, who had brought her to the ER for evaluation patient initially had a CT scan of the brain did not show evidence of acute abnormalities CT angiography did not show evidence of any dissection or aneurysm , laboratory evaluation were negative, she was found to have a minimal leukocytes in the urine, without urinary tract infection symptoms, patient was started on IV fluid resuscitation, she was started on Rocephin 2 g IV piggyback every 24 hours in the ER, she was admitted as an observation for evaluation MRI of the brain with and without contrast was obtained to rule out any acute ischemic event. 06/01: Patient is sitting up in bed that she is complaining of increased abdominal pain in the lower abdomen, she was started yesterday on ceftriaxone 2 g piggyback every 24 hours for suspected UTI, patient has no symptoms of dysuria or hematuria, we will continue with IV and a biotic, will obtain abdominal x-ray at this time to rule out any acute abnormalities, start the patient on MiraLAX 17 g in 8 ounce of water as well as Senokot once every day, await MRI of the brain with and without dio, if its normal patient can be discharged with afternoon if she did have a good bowel movement all we have to wait until tomorrow morning. REVIEW OF SYSTEMS: Constitutional: No documented fever, no chills, no night sweats. No weight change. No weakness, fatigue or lethargy. No daytime sleepiness. EENT: positive for headache. No blurred vision or double vision, no loss of vision. No loss of Hearing, no ringing in the ears, no dizziness. No nasal drainage or congestion. No epistaxis. No sore throat. Lungs: No shortness of breath, no cough, no sputum production. No wheezing. Reports dyspnea with activity. Cardiovascular: No chest pain, no lower extremity edema. No palpitations. No p aroxysmal nocturnal dyspnea. No orthopnea. No lightheadedness or dizziness. No syncopal episodes. Abdominal: Reports abdominal pain. No nausea,one episode of vomiting. No diarrhea. occasional constipation. No bloody or tarry stools reports loss of appetite. Genitourinary: No dysuria, increased frequency,no urgency. No urinary retention. Musculoskeletal: No myalgias. No muscle weakness, no gait dysfunction, no frequent falls. positive for back pain. No neck pain. Integumentary: No wounds, no lesions. No rash or pruritus. No unusual bruising. No change in hair or nails. Neurologic: No aphasia. No facial droop. positive for change in mentation. No head injury. positive for headache. No paralysis. No paresthesia. Psychiatric: No depression. positive for anxiety. No mood swings. Endocrine: No abnormal blood sugars. No weight change. PHYSICAL EXAMINATION: General: 83-year-old laying down in bed in no apparent distress. HEENT: Head is atraumatic, normocephalic, pupils were equal round reactive to light and recommendation, extraocular muscle movement were intact, sclera nonicteric, conjunctivae were pale, mucous membranes of the mouth are somewhat dry. Neck: Supple, no JVP, normal carotid upstroke bilaterally, no lymphadenopathy. Chest: Decreased breath sounds at the bases, few rhonchi, no expiratory wheezes, no chest wall tenderness, no intercostal retractions. Heart: First heart sound is normal, second heart sound is normal there is systolic ejection murmur 2/6 located in the left sternal border. Abdomen: Soft, nontender, nondistended, positive bowel sounds. Extremities: There is no edema no calf tenderness DP +2 bilaterally. Neurologic examination: Patient is awake alert and oriented x3, cranial nerves II-12 appear grossly intact, muscle power were 5 out of 5 in upper extremities and 5 out of 5 in bilateral lower extremities, deep tendon reflexes normal bilaterally. ASSESSMENT AND PLAN: 1. Acute vascular headache with confusional state possible TIA rule out CVA. Patient did have a CT scan of the brain in the ER did not show evidence of acute abnormalities only ischemic white matter changes, CT angiography of the neck and the brain did not show evidence of any dissection or aneurysm, patient was started on aspirin 81 mg once every day, patient also will be scheduled for MRI of the brain with and without dio for further evaluation, neurology consultation was obtained as well, patient had refused statins in the past which I will recommend again. 2. Mild cystitis without symptoms of UTI. Await the final result of the culture patient was started on ceftriaxone 2 g piggyback every 24 hours. 3. Abdominal pain likely related to constipation obtain abdominal x-ray 2 views, start the patient on MiraLAX 17 g in 8 ounce of water, start Senokot 1 tablet orally once every day. 4. Hypertension and hypertensive cardiovascular disease. Continue metoprolol ER 25 mg at bedtime. Monitor the patient blood pressure very closely. 5. Hyperlipidemia. Patient has refused statin in the past, we will check lipid panel. 6. Hypothyroidism. Continue Synthroid 75 mcg orally once every day. 7. Hepatocellular carcinoma under the care of Dr. Dillard at [facility] status post radiofrequency ablation on October 2022 currently in remission. 8. History of liver cirrhosis without ascites. Ammonia level appears normal. 9. Spondylosis of the lumbar spine stable at this time. 10. GERD. Will start the patient on Protonix 40 mg once every day. 11. Anxiety disorder. Continue patient on Escitalopram 20 mg once every day an d Xanax 0.5 mg at bedtime. 12. DVT prophylaxis. Lovenox 40 mg subcutaneous every 24 hours. 13. GI prophylaxis. Continue patient on Protonix 40 mg once every day. Objective - Vital Signs Vital signs: Vital Signs Temp 100.7 F H 06/01/24 07:05 Pulse 74 06/01/24 07:05 Resp 16 06/01/24 07:05 BP 134/70 06/01/24 07:05 Pulse Ox 92 L 06/01/24 09:14 FiO2 Intake & Output 05/31/24 06/01/24 06/01/24 18:59 06:59 18:59 Weight 68.039 kg 68.039 kg Other: Voiding Method Toilet Toilet # Voids 2 - Labs CBC & Chem 7: 05/31/24 14:10 05/31/24 14:10 Labs: Abnormal Lab Results - Last 24 Hours (Table) 05/31/24 05/31/24 Range/Units 14:10 16:41 Sodium 133 L (137-145) mmol/L BUN 22 H (7-17) mg/dL Glucose 113 H (74-99) mg/dL AST 70 H (14-36) U/L ALT 65 H (4-34) U/L Alkaline Phosphatase 161 H (38-126) U/L Ur Leukocyte Esterase Large H (Negative) Urine WBC 22 H (0-5) /hpf Urine Mucus Occasional H (None) /hpf Urine Opiates Screen Detected H (NotDetected) U Tricyclic Antidepress Detected H (NotDetected) U Benzodiazepines Scrn Detected H (NotDetected) U Marijuana (THC) Screen Detected H (NotDetected)
[2024-06-01] MEDS: SENNOSIDES 8.6 MG TAB PO SCH (10:13)
[2024-06-01] MEDS: polyethylene glycoL 3350 17 GM POWD.PACK PO SCH (10:13)
[2024-06-01 10:16] LABS: Basophils # (A) 0.03 X 10*3/uL (0.00-0.10); Basophils % (A) 0.2 %; Eosinophils # (A) 0.08 X 10*3/uL (0.04-0.35); Eosinophils % (A) 0.6 %; HCT 41.5 % (37.2-46.3); HGB 13.6 g/dL (12.0-15.0); Lymphocytes # (A) 0.44 X 10*3/uL (0.90-5.00); Lymphocytes % (A) 3.3 %; MCH 31.1 pg (27.0-32.0); MCHC 32.8 g/dL (32.0-37.0); MCV 94.7 FL (80.0-97.0); Mean Platelet Volume 10.5 FL (9.5-12.2); Monocytes # (A) 0.83 X 10*3/uL (0.20-1.00); Monocytes % (A) 6.2 %; NRBC Per 100 WBC 0 X 10*3/uL (0.00-0.01); Neutrophils # (A) 11.96 X 10*3/uL (1.80-7.70); Platelet Count 169 X 10*3/uL (140-440); RBC 4.38 X 10*6/uL (4.10-5.20); RDW 13.6 % (11.5-14.5); WBC 13.44 X 10*3/uL (4.50-10.00)
[2024-06-01 10:29] LABS: ALT 65 U/L (8-44); AST 66 U/L (13-35); Alkaline Phosphatase 163 U/L (41-126); BUN/Creat Ratio 18.67 Ratio (12.00-20.00); Blood Urea Nitrogen 16.8 mg/dL (9.0-27.0); Calcium 9.7 mg/dL (8.7-10.3); Carbon Dioxide 24.2 mmol/L (21.6-31.8); Chloride 103 mmol/L (96-109); Chol/HDL Ratio 2.52 Ratio; Globulin 2.5 g/dL (1.6-3.3); Glucose 104 mg/dL (70-110); LDL Cholesterol,Calculated 85.7 mg/dL (0.0-131.0); Potassium 4.5 mmol/L (3.5-5.5); Sodium 140 mmol/L (135-145); Total Bilirubin 0.8 mg/dL (0.3-1.2); Total Protein 6.5 g/dL (6.2-8.2); VLDL Calculation 12.06 mg/dL (5.00-40.00)
--- NOTE | 2024-06-01 12:16 | MR ---
EXAMINATION TYPE: MR brain wo/w con DATE OF EXAM: 06/01/2024 COMPARISON: CT brain earlier today. HISTORY: Encephalopathy. Hx breast/liver cancer. TECHNIQUE: Multiplanar, multisequence images of the brain and brainstem is performed without and with IV contras t, utilizing 6 mL intravenous Gadobutrol . FINDINGS: Diffusion weighted images demonstrate no evidence of a recent infarct or other diffusion ab normality. There is mild ventricular and sulcal prominence. There are multifocal areas of T2 hyperin tensity throughout the white matter bilaterally. These are nonspecific in appearance and distribution . Approximately 20 scattered lesions are present. Midline structures demonstrate normal morphology. The craniocervical junction appears within normal limits. Post contrast images demonstrate no abnormal enhancement or enhancing masses. The dural veno us sinuses appear patent. Bilateral aphakia is redemonstrated. The paranasal sinuses are grossly court r. IMPRESSION: 1. No MRI evidence for a recent infarct. 2. There is mild diffuse cerebral and mild to moderate chronic small vessel ischemic change. No abnor mal enhancement is seen. [facility], , 06/01/2024 12:14 PM
--- NOTE | 2024-06-01 13:08 | XR ---
EXAMINATION TYPE: XR abdomen 2V DATE OF EXAM: 06/01/2024 12:51 PM COMPARISON: 03/30/2012 CLINICAL INDICATION: Female, 83 years old with history of pain; TECHNIQUE: Two views of the abdomen were obtained. FINDINGS: The bowel gas pattern is nonspecific without dilated loops of small or large bowel. . Fecal material and gas are demonstrated throughout the colon and rectum. There is no evidence for organome silvestre or pneumoperitoneum. Degeneration changes of the spine. No acute osseous process. Pelvic phleb oliths are present. IMPRESSION: Nonspecific bowel gas pattern without radiographic evidence for acute process. [facility], , 06/01/2024 1:06 PM
[2024-06-01] MEDS: SODIUM CHLORIDE 0.9% 1,000 ML IV SCH (14:20)
--- NOTE | 2024-06-01 14:56 | P.CNNES ---
History of Present Illness Consult date: 06/01/24 Requesting physician: Mir Kirkland Reason for Consult: confusion History of Present Illness: Patient is an 83-year-old woman who presents the emergency department because of headache, dizziness, diplopia, confusion. Patient's is at bedside who provides some of the history. Seems that yesterday she developed bilateral temporal headache also involving bilateral parietal region and her symptoms began at 1 PM yesterday. She stated the headache was 10 out of 10. Cannot describe the headache. But felt later it was a throbbing headache pain medial headache. Then she felt dizzy as if she is moving. She has double vision of both eyes. She is not making sense. She denies any focal weakness. Denies any fevers she noticed. Denies any recent travels or rash. Then last night she vomited. Denies any history of stroke. Denies any seizures. Stated her headache yesterday is intermittent multiple times lasting for 10 minutes and resolved and came back. Denies any photophobia or phonophobia. Denies any aggravation of the headache or alleviation. Today she feels the headache resolved. Also yesterday she was not making sense. Today she feels drastically better. Has history of liver cancer and she has cirrhosis. She denies any illicit drug use. She is on opiate and has chronic low back pain. She did take opiates recently. She also has a history of hypothyroidism. She is on aspirin 81 mg and last time she used it was 8 days ago. She is on Xanax. She denies any illicit drug use. Denies any marijuana use. Some of the workup during this hospital visit consisted of: Tmax is 100.7 Fahrenheit. On initial presentation her CBC with differential is unremarkable. Repeated the white blood cells 13.4 thousand. AST 70 and ALT 65. Ammonia level is less than 9 Sodium is 133, pO2 32.4 Urinalysis is leukocyte Estrace large, urine white blood cells 22 and urine mucus is occasional. UDS is positive for opiates, tricyclic antidepressant, benzodiazepine, marijuana. Patient is adamant she does not use marijuana. CT of the head is reported as no acute intracranial process. Nonspecific white matter changes likely secondary due to chronic small vessel ischemic disease. I reviewed the CT and agree with the report. CT angiography of the head and neck is reported as no evidence of dissection of cervical internal carotid artery or vertebral artery. No evidence of significant stenosis at the carotid bifurcation. No evidence of intracranial high-grade or intracranial aneurysm. Review of Systems As per HPI. 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 History of Any Multi-Drug Resistant Organisms: None Reported Past Surgical History: Breast Surgery, Section, Hysterectomy, Orthopedic Surgery Additional Past Surgical History / Comment(s): Shoulder surgery, lumpectomy left breast 2006, Liver ablation. Past Anesthesia/Blood Transfusion Reactions: No Reported Reaction Additional Past Anesthesia/Blood Transfusion Reaction / Comment(s): no blood transfusion reaction Past Psychological History: No Psychological Hx Reported Smoking Status: Former smoker Past Alcohol Use History: None Reported Past Drug Use History: None Reported - Past Family History Mother Family Medical History: No Reported History Sister(s) Family Medical History: Cancer Additional Family Medical History / Comment(s): Breast Medications and Allergies Home Medications Medication Instructions Recorded Confirmed Type ALPRAZolam [Xanax] 0.5 mg PO DAILY PRN 02/26/23 05/31/24 History Escitalopram [Lexapro] 20 mg PO HS 02/26/23 05/31/24 History Metoprolol Succinate (ER) [Toprol 25 mg PO HS 02/26/23 05/31/24 History Xl] Budesonide/Formoterol Fumarate 2 puff INHALATION RT-BID 05/31/24 05/31/24 History [Symbicort 160-4.5 Mcg Inhaler] Calcium Carbonate/Vitamin D3 1 tab PO DAILY 05/31/24 05/31/24 History [Calcium 600 mg-Vit D3 10 mcg (400 Unit)] Cyclobenzaprine [Flexeril] 5 mg PO HS PRN 05/31/24 05/31/24 History Isosorbide Mononitrate ER [Imdur] 30 mg PO DAILY 05/31/24 05/31/24 History Levothyroxine Sodium [Synthroid] 88 mcg PO DAILY 05/31/24 05/31/24 History Multivit-Min/FA/Lycopen/Lutein 1 tab PO DAILY 05/31/24 05/31/24 History [Centrum Silver Tablet] Allergies Allergy/AdvReac Type Severity Reaction Status Date / Time codeine AdvReac Nausea & Verified 05/31/24 17:02 Vomiting latex AdvReac Rash/Hives Verified 05/31/24 17:02 Physical Examination - Vital Signs Vital Signs: Vital Signs Temp Pulse Pulse Resp BP BP BP 06/01/24 13:50 97.9 F 64 17 113/62 06/01/24 09:14 06/01/24 07:05 100.7 F H 74 16 134/70 06/01/24 02:00 97.5 F L 67 17 127/66 05/31/24 20:52 60 17 149/67 05/31/24 20:00 98.1 F 62 17 170/78 05/31/24 18:11 64 18 148/69 05/31/24 15:47 97.8 F 57 L 16 131/62 Pulse Ox 06/01/24 13:50 95 06/01/24 09:14 92 L 06/01/24 07:05 94 L 06/01/24 02:00 96 05/31/24 20:52 97 05/31/24 20:00 97 05/31/24 18:11 98 05/31/24 15:47 95 Intake and Output 05/31/24 06/01/24 06/01/24 22:59 06:59 14:59 Intake Total 118 Balance 118 Intake: Oral 118 Other: Voiding Method Toilet Toilet # Voids 2 2 5 # Bowel Movements 0 Weight 68.039 kg GENERAL: The patient is lying in bed and is not in acute distress. HENT: Supple neck. NEUROLOGICAL: Higher mental function: The patient is awake, alert, oriented to self, place and time. Patient is following commands. No aphasia and no neglect. Cranial nerves: The pupils are round, equal and reactive to light and accommodation. Visual claros are full to confrontation throughout. Extraocular movement is intact no nystagmus is noted. Facial sensation is normal to touch throughout. The facial strength is normal throughout. Hearing is normal bilaterally to hand rub. Tongue is midline and moved [id number] without any difficulty. No dysarthria is noted. Shoulder shrug is normal bilaterally. Motor: The strength is 5 over 5 throughout. Normal tone and bulk. Cerebellum: Normal finger to nose heel to solis bilaterally. Sensation: Sensation is normal to touch throughout. Reflexes (right/left): 2+ throughout. Plantars are downgoing bilaterally. Results - Laboratory Findings CBC and BMP: 06/01/24 07:55 06/01/24 07:55 Abnormal Lab Findings: Abnormal Labs 05/31/24 05/31/24 06/01/24 14:10 16:41 07:55 WBC 13.44 H Immature Gran # 0.10 H Neutrophils # 11.96 H Lymphocytes # 0.44 L Sodium 133 L Anion Gap BUN 22 H Glucose 113 H AST 70 H ALT 65 H Alkaline Phosphatase 161 H HDL Cholesterol Ur Leukocyte Esterase Large H Urine WBC 22 H Urine Mucus Occasional H Urine Opiates Screen Detected H U Tricyclic Antidepress Detected H U Benzodiazepines Scrn Detected H U Marijuana (THC) Screen Detected H 06/01/24 07:55 WBC Immature Gran # Neutrophils # Lymphocytes # Sodium Anion Gap 12.80 H BUN Glucose AST 66 H ALT 65 H Alkaline Phosphatase 163 H HDL Cholesterol 64.20 H Ur Leukocyte Esterase Urine WBC Urine Mucus Urine Opiates Screen U Tricyclic Antidepress U Benzodiazepines Scrn U Marijuana (THC) Screen Assessment and Plan Assessment: This is an 83-year-old woman who presents emergency department because of headache, confusion, diplopia, 1 episode of vomiting yesterday. UA seems suggestive of acute urinary tract infection. CT of the head and CT angiography head and neck is unremarkable Altered mental status with confusion, cephalgia diplopia, dizziness episode of vomiting possibly due to underlying acute urosepsis/septic encephalopathy. Patient had grade fever. This does not seem meningitis. Underlying history of liver cirrhosis Transaminitis due to her underlying liver cirrhosis from her liver cancer and she had ablation in the past History of hypothyroidism History of mitral valve prolapse History emphysema Patient is positive for opiates, benzo and marijuana but patient is adamant that she does not use marijuana Plan: MRI of the brain is ordered and is pending I ordered routine EEG, TSH, vitamin B12 and folate If patient continues to have confusion and unknown source then recommend lumbar puncture Recommend ID consultation Will defer the rest of the medical management to primary other specialist Plan discussed with the patient, her is at bedside as well as with nurse Thank you for the consultation Time with Patient: Greater than 30
--- NOTE | 2024-06-01 22:42 | EEG ---
ELECTROENCEPHALOGRAM REPORT CLINICAL HISTORY: This is an 83-year-old woman with altered mental status. The video EEG is obtained to evaluate for seizure epileptiform activity. RELEVANT MEDICATIONS: 1. Xanax. 2. Flexeril. EEG TYPE: This is a routine 21-channel EEG with video using the 10/20 electrode placement system. DESCRIPTION: Wakefulness is only obtained. During awake state, the posterior-dominant rhythm consists of [id number] voltage of 8.5 to 9 hertz activity. There was no physiological stage 2 sleep architecture. There is no focal slowing. There is mild diffuse myogenic artifact. Interictal and ictal is none. ACTIVATION PROCEDURE: Photic stimulation did not evoke a posterior driving response. There is no abnormality during the photic stimulation. Hyperventilation is not performed. CLINICAL INTERPRETATION: This is a normal routine EEG during awake state. There is no focal slowing, epileptiform discharge, or seizure on the EEG. A normal routine EEG does not rule out underlying epilepsy. Clinical correlation is recommended. MMDAGOBERTO / MANOLON: [id number] /
[2024-06-02 09:46] LABS: ALT 48 U/L (8-44); AST 46 U/L (13-35); Albumin 3.4 g/dL (3.8-4.9); Albumin/Globulin Ratio 1.48 Ratio (1.60-3.17); Alkaline Phosphatase 127 U/L (41-126); BUN/Creat Ratio 16.44 Ratio (12.00-20.00); Blood Urea Nitrogen 14.8 mg/dL (9.0-27.0); Calcium 8.7 mg/dL (8.7-10.3); Carbon Dioxide 24.3 mmol/L (21.6-31.8); Chloride 106 mmol/L (96-109); Globulin 2.3 g/dL (1.6-3.3); Glucose 92 mg/dL (70-110); Potassium 4.1 mmol/L (3.5-5.5); Sodium 139 mmol/L (135-145); Total Bilirubin 0.6 mg/dL (0.3-1.2); Total Protein 5.7 g/dL (6.2-8.2)
[2024-06-02 12:16] LABS: Basophils # (A) 0.01 X 10*3/uL (0.00-0.10); Basophils % (A) 0.2 %; Eosinophils # (A) 0.23 X 10*3/uL (0.04-0.35); Eosinophils % (A) 3.6 %; HCT 36.9 % (37.2-46.3); HGB 11.9 g/dL (12.0-15.0); Lymphocytes # (A) 0.96 X 10*3/uL (0.90-5.00); Lymphocytes % (A) 15.2 %; MCH 31.4 pg (27.0-32.0); MCHC 32.2 g/dL (32.0-37.0); MCV 97.4 FL (80.0-97.0); Mean Platelet Volume 10.8 FL (9.5-12.2); Monocytes # (A) 0.63 X 10*3/uL (0.20-1.00); NRBC Per 100 WBC 0 X 10*3/uL (0.00-0.01); Neutrophils # (A) 4.48 X 10*3/uL (1.80-7.70); Neutrophils % (A) 70.7 %; Platelet Count 113 X 10*3/uL (140-440); RBC 3.79 X 10*6/uL (4.10-5.20); RDW 14.1 % (11.5-14.5); WBC 6.33 X 10*3/uL (4.50-10.00)
--- NOTE | 2024-06-02 12:37 | P.PN ---
Subjective Progress Note Date: 06/02/24 HISTORY OF PRESENT ILLNESS: This is an 83-year-old female with a previous medical history signi ficant for hypertension and hypertensive cardiovascular disease, hyperlipidemia, hypothyroidism, history of hepatocellular carcinoma status post radiofrequency ablation has been under the care of Dr. Dillard at [facility] with a surveillance CT scan of the abdomen that was done recently about a month ago and she will go back in 6-month has been in remission cirrhosis of the liver without ascites irritable bowel syndrome with constipation, spondylosis of the lumbar spine for which she took 1 [place] from her last prescription allergic rhinitis, anxiety disorder, GERD, patient stated that she was sitting in her chair trying to read something, and all of a sudden started to have some headache and she felt laterally of her head is ballooning out on the right side, at the same time she became somewhat dizzy and nauseated she took up from her chair with her and asked for help, who had brought her to the ER for evaluation patient initially had a CT scan of the brain did not show evidence of acute abnormalities CT angiography did not show evidence of any dissection or aneurysm , laboratory evaluation were negative, she was found to have a minimal leukocytes in the urine, without urinary tract infection symptoms, patient was started on IV fluid resuscitation, she was started on Rocephin 2 g IV piggyback every 24 hours in the ER, she was admitted as an observation for evaluation MRI of the brain with and without contrast was obtained to rule out any acute ischemic event. 06/01: Patient is sitting up in bed that she is complaining of increased abdominal pain in the lower abdomen, she was started yesterday on ceftriaxone 2 g piggyback every 24 hours for suspected UTI, patient has no symptoms of dysuria or hematuria, we will continue with IV and a biotic, will obtain abdominal x-ray at this time to rule out any acute abnormalities, start the patient on MiraLAX 17 g in 8 ounce of water as well as Senokot once every day, await MRI of the brain with and without dio, if its normal patient can be discharged with afternoon if she did have a good bowel movement all we have to wait until tomorrow morning. 06/03: Patient is laying down in bed in no apparent distress, she is more awake and more alert today, her was at bedside, he was updated about her current condition, her urine culture showing gram-negative bacilli, continue IV antibiotic in the form of ceftriaxone 2 g IV piggyback every 24 hours, follow-up with the patient very closely, once the cultures are back, patient can be discharged home and follow-up with me as an outpatient hopefully in the next 24 hours. REVIEW OF SYSTEMS: Constitutional: No documented fever, no chills, no night sweats. No weight change. No weakness, fatigue or lethargy. No daytime sleepiness. EENT: positive for headache. No blurred vision or double vision, no loss of vision. No loss of Hearing, no ringing in the ears, no dizziness. No nasal drainage or congestion. No epistaxis. No sore throat. Lungs: No shortness of breath, no cough, no sputum production. No wheezing. Reports dyspnea with activity. Cardiovascular: No chest pain, no lower extremity edema. No palpitations. No paroxysmal nocturnal dyspnea. No orthopnea. No lightheadedness or dizziness. No syncopal episodes. Abdominal: Reports abdominal pain. No nausea,one episode of vomiting. No diarrhea. occasional constipation. No bloody or tarry stools reports loss of appetite. Genitourinary: No dysuria, increased frequency,no urgency. No urinary retention. Musculoskeletal: No myalgias. No muscle weakness, no gait dysfunction, no frequent falls. positive for back pain. No neck pain. Integumentary: No wounds, no lesions. No rash or pruritus. No unusual bruising. No change in hair or nails. Neurologic: No aphasia. No facial droop. positive for change in mentation. No head injury. positive for headache. No paralysis. No paresthesia. Psychiatric: No depression. positive for anxiety. No mood swings. Endocrine: No abnormal blood sugars. No weight change. PHYSICAL EXAMINATION: General: 83-year-old laying down in bed in no apparent distress. HEENT: Head is atraumatic, normocephalic, pupils were equal round reactive to light and recommendation, extraocular muscle movement were intact, sclera nonicteric, conjunctivae were pale, mucous membranes of the mouth are somewhat dry. Neck: Supple, no JVP, normal carotid upstroke bilaterally, no lymphadenopathy. Chest: Decreased breath sounds at the bases, few rhonchi, no expiratory wheezes, no chest wall tenderness, no intercostal retractions. Heart: First heart sound is normal, second heart sound is normal there is systolic ejection murmur 2/6 located in the left sternal border. Abdomen: Soft, nontender, nondistended, positive bowel sounds. Extremities: There is no edema no calf tenderness DP +2 bilaterally. Neurologic examination: Patient is awake alert and oriented x3, cranial nerves II-12 appear grossly intact, muscle power were 5 out of 5 in upper extremities and 5 out of 5 in bilateral lower extremities, deep tendon reflexes normal bilaterally. ASSESSMENT AND PLAN: 1. Acute vascular headache with confusional state patient was ruled out for any acute ischemic event her MRI of the brain is negative, her CT scan of the brain is negative, this is likely related to metabolic encephalopathy due to urinary tract infection with sepsis. 2. Gram-negative bacilli UTI with sepsis. Continue IV fluid resuscitation in the form of normal saline at 100 cc an hour, continue ceftriaxone 2 g piggyback every 24 hours, await the final result of the culture hopefully home in the next 24 hours. 3. Abdominal pain likely related to constipation obtain abdominal x-ray 2 views, start the patient on MiraLAX 17 g in 8 ounce of water, start Senokot 1 tablet orally once every day. 4. Hypertension and hypertensive cardiovascular disease. Continue metoprolol ER 25 mg at bedtime. Monitor the patient blood pressure very closely. 5. Hyperlipidemia. Patient has refused statin in the past, we will check lipid panel. 6. Hypothyroidism. Continue Synthroid 75 mcg orally once every day. 7. Hepatocellular carcinoma under the care of Dr. Dillard at [facility] status post radiofrequency ablation on October 2022 currently in remission. 8. History of liver cirrhosis without ascites. Ammonia level appears normal. 9. Spondylosis of the lumbar spine stable at this time. 10. GERD. Will start the patient on Protonix 40 mg once every day. 11. Anxiety disorder. Continue patient on Escitalopram 20 mg once every day and Xanax 0.5 mg at bedtime. 12. DVT prophylaxis. Lovenox 40 mg subcutaneous every 24 hours. 13. GI prophylaxis. Continue patient on Protonix 40 mg once every day. 14. Hopefully home tomorrow morning Objective - Vital Signs Vital signs: Vital Signs Temp 97.5 F L 06/02/24 07:05 Pulse 71 06/02/24 07:05 Resp 18 06/02/24 07:05 BP 158/65 06/02/24 07:05 Pulse Ox 95 06/02/24 07:05 FiO2 Intake & Output 06/01/24 06/02/24 06/02/24 18:59 06:59 18:59 Intake Total 118 Balance 118 Intake: Oral 118 Other: Voiding Method Toilet Toilet # Voids 5 3 # Bowel Movements 0 - Labs CBC & Chem 7: 06/02/24 03:09 06/02/24 03:09 Labs: Abnormal Lab Results - Last 24 Hours (Table) 05/31/24 06/01/24 06/01/24 Range/Units 15:41 07:55 07:55 WBC 13.44 H (4.50-10.00) X 10*3/uL Immature Gran # 0.10 H (0.00-0.04) X 10*3/uL Neutrophils # 11.96 H (1.80-7.70) X 10*3/uL Lymphocytes # 0.44 L (0.90-5.00) X 10*3/uL Anion Gap 12.80 H (4.00-12.00) mmol/L AST 66 H (13-35) U/L ALT 65 H (8-44) U/L Alkaline Phosphatase 163 H (41-126) U/L Total Protein (6.2-8.2) g/dL Albumin (3.8-4.9) g/dL Albumin/Globulin Ratio (1.60-3.17) Ratio HDL Cholesterol 64.20 H (40.00-60.00) mg/dL Folate 40.00 H (4.40-31.00) ng/mL 06/02/24 Range/Units 03:09 WBC (4.50-10.00) X 10*3/uL Immature Gran # (0.00-0.04) X 10*3/uL Neutrophils # (1.80-7.70) X 10*3/uL Lymphocytes # (0.90-5.00) X 10*3/uL Anion Gap (4.00-12.00) mmol/L AST 46 H (13-35) U/L ALT 48 H (8-44) U/L Alkaline Phosphatase 127 H (41-126) U/L Total Protein 5.7 L (6.2-8.2) g/dL Albumin 3.4 L (3.8-4.9) g/dL Albumin/Globulin Ratio 1.48 L (1.60-3.17) Ratio HDL Cholesterol (40.00-60.00) mg/dL Folate (4.40-31.00) ng/mL Microbiology - Last 24 Hours (Table) 05/31/24 16:41 Urine Culture - Preliminary Urine,Voided Gram Neg Bacilli
--- NOTE | 2024-06-02 14:50 | P.PN ---
Subjective Progress Note Date: 06/02/24 I am following up with the patient and she said she is doing drastically better today. She feels much better compared to her initial presentation. She denies any further neurological issues. Upon seeing her she was sleeping. Objective - Vital Signs Vital signs: Vital Signs Temp 97.5 F L 06/02/24 07:05 Pulse 71 06/02/24 07:05 Resp 18 06/02/24 07:05 BP 158/65 06/02/24 07:05 Pulse Ox 95 06/02/24 07:05 FiO2 Intake & Output 06/01/24 06/02/24 06/02/24 18:59 06:59 18:59 Intake Total 118 Balance 118 Intake: Oral 118 Other: Voiding Method Toilet Toilet # Voids 5 3 1 # Bowel Movements 0 - Exam General: Lying in bed and is not in acute distress. Neuro: Sleeping so the examination was limited She would wake up and she would answer questions then would go back to sleep again. Oriented to self place and time. Is following simple commands. No aphasia from limited language. No facial weakness. No dysarthria. Some of the workup during this hospital visit consisted of: Tmax is 100.7 Fahrenheit. On initial presentation her CBC with differential is unremarkable. Repeated the white blood cells 13.4 thousand. AST 70 and ALT 65. Ammonia level is less than 9 Vitamin B12 is 637, serum folate is 40 TSH is 2.50 Sodium is 133, pO2 32.4 Urinalysis is leukocyte Estrace large, urine white blood cells 22 and urine mucus is occasional. UDS is positive for opiates, tricyclic antidepressant, benzodiazepine, marijuana. Patient is adamant she does not use marijuana. CT of the head is reported as no acute intracranial process. Nonspecific white matter changes likely secondary due to chronic small vessel ischemic disease. I reviewed the CT and agree with the report. CT angiography of the head and neck is reported as no evidence of dissection of cervical internal carotid artery or vertebral artery. No evidence of significa nt stenosis at the carotid bifurcation. No evidence of intracranial high-grade or intracranial aneurysm. Urine culture is gram-negative bacilli. Brain MRI is no MRI evidence for recent infarct. No abnormal enhancement is seen. Routine EEG: Normal. - Labs CBC & Chem 7: 06/02/24 03:09 06/02/24 03:09 Labs: Abnormal Lab Results - Last 24 Hours (Table) 05/31/24 06/02/24 06/02/24 Range/Units 15:41 03:09 03:09 RBC 3.79 L (4.10-5.20) X 10*6/uL Hgb 11.9 L (12.0-15.0) g/dL Hct 36.9 L (37.2-46.3) % MCV 97.4 H (80.0-97.0) FL Plt Count 113 L (140-440) X 10*3/uL AST 46 H (13-35) U/L ALT 48 H (8-44) U/L Alkaline Phosphatase 127 H (41-126) U/L Total Protein 5.7 L (6.2-8.2) g/dL Albumin 3.4 L (3.8-4.9) g/dL Albumin/Globulin Ratio 1.48 L (1.60-3.17) Ratio Folate 40.00 H (4.40-31.00) ng/mL Microbiology - Last 24 Hours (Table) 05/31/24 16:41 Urine Culture - Preliminary Urine,Voided Gram Neg Bacilli Assessment and Plan Assessment: This is an 83-year-old woman who presents emergency department because of headache, confusion, diplopia, 1 episode of vomiting yesterday. UA seems suggestive of acute urinary tract infection. CT of the head and CT angiography head and neck is unremarkable Altered mental status with confusion, cephalgia diplopia, dizziness episode of vomiting possibly due to underlying acute urosepsis/septic encephalopathy--- mentation is improved and no further neurological issues. MRI of the brain is unremarkable for any acute ischemia or enhancement. EEG is normal. Acute urinary tract infection and Urine culture is positive for gram-negative bacilli Underlying history of liver cirrhosis Transaminitis due to her underlying liver cirrhosis from her liver cancer and she had ablation in the past History of hypothyroidism History of mitral valve prolapse History emphysema Patient is positive for opiates, benzo and marijuana but patient is adamant that she does not use marijuana Plan: Is on ceftriaxone. Patient feels she is doing drastically better compared to initial presentation Will defer the rest of the medical management to primary other specialist No further neurological workup. Will sign off. Please reconsult if needed peer
[2024-06-02] MEDS: IBUPROFEN 400 MG TAB PO PRN (16:36)
[2024-06-03 07:40] VITALS: BP 166/81; PULSE 65; RESP 16; TEMP 97.7
[2024-06-03 08:12] LABS: ALT 52 U/L (8-44); AST 51 U/L (13-35); Albumin 3.4 g/dL (3.8-4.9); Albumin/Globulin Ratio 1.42 Ratio (1.60-3.17); Alkaline Phosphatase 137 U/L (41-126); BUN/Creat Ratio 14.11 Ratio (12.00-20.00); Blood Urea Nitrogen 12.7 mg/dL (9.0-27.0); Calcium 8.8 mg/dL (8.7-10.3); Carbon Dioxide 24.2 mmol/L (21.6-31.8); Chloride 108 mmol/L (96-109); Globulin 2.4 g/dL (1.6-3.3); Glucose 103 mg/dL (70-110); Potassium 4.1 mmol/L (3.5-5.5); Sodium 141 mmol/L (135-145); Total Bilirubin 0.5 mg/dL (0.3-1.2); Total Protein 5.8 g/dL (6.2-8.2)
[2024-06-03 08:37] LABS: Basophils # (A) 0.02 X 10*3/uL (0.00-0.10); Basophils % (A) 0.4 %; Eosinophils # (A) 0.29 X 10*3/uL (0.04-0.35); Eosinophils % (A) 6.4 %; HGB 11.8 g/dL (12.0-15.0); Lymphocytes # (A) 0.77 X 10*3/uL (0.90-5.00); MCH 31.9 pg (27.0-32.0); MCHC 32.8 g/dL (32.0-37.0); MCV 97.3 FL (80.0-97.0); Mean Platelet Volume 10.9 FL (9.5-12.2); Monocytes # (A) 0.54 X 10*3/uL (0.20-1.00); Monocytes % (A) 11.9 %; NRBC Per 100 WBC 0 X 10*3/uL (0.00-0.01); Neutrophils # (A) 2.89 X 10*3/uL (1.80-7.70); Neutrophils % (A) 63.9 %; Platelet Count 109 X 10*3/uL (140-440); RDW 13.8 % (11.5-14.5); WBC 4.53 X 10*3/uL (4.50-10.00)
--- NOTE | 2024-06-03 09:53 | P.DS ---
Providers Date of admission: 06/02/24 14:01 Expected date of discharge: 06/03/24 Attending physician: Saman Ngo Consults: 05/31/24 19:12 Consult Physician Routine Consulting Provider: Yehuda Morales Consult Reason/Comments: confusion Do you want consulting provider notified?: Yes Primary care physician: Saman Ngo [facility] Course: HISTORY OF PRESENT ILLNESS: This is an 83-year-old female with a previous medical history significant for hypertension and hypertensive cardiovascular disease, hyperlipidemia, hypothyroidism, history of hepatocellular carcinoma status post radiofrequency ablation has been under the care of Dr. Dillard at [facility] with a surveillance CT scan of the abdomen that was done recently about a month ago and she will go back in 6-month has been in remission cirrhosis of the liver without ascites irritable bowel syndrome with constipation, spondylosis of the lumbar spine for which she took 1 [place] from her last prescription allergic rhinitis, anxiety disorder, GERD, patient stated that she was sitting in her chair trying to read something, and all of a sudden started to have some headache and she felt laterally of her head is ballooning out on the right side, at the same time she became somewhat dizzy and nauseated she took up from her chair with her and asked for help, who had brought her to the ER for evaluation patient initially had a CT scan of the brain did not show evidence of acute abnormalities CT angiography did not show evidence of any dissection or aneurysm, laboratory evaluation were negative, she was found to have a minimal leukocytes in the urine, without urinary tract infection symptoms, patient was started on IV fluid resuscitation, she was started on Rocephin 2 g IV piggyback every 24 hours in the ER, she was admitted as an observation for evaluation MRI of the brain with and without contrast was obtained to rule out any acute ischemic event. 06/01: Patient is sitting up in bed that she is complaining of increased abdominal pain in the lower abdomen, she was started yesterday on ceftriaxone 2 g piggyback every 24 hours for suspected UTI, patient has no symptoms of dysuria or hematuria, we will continue with IV and a biotic, will obtain abdominal x-ray at this time to rule out any acute abnormalities, start the patient on MiraLAX 17 g in 8 ounce of water as well as Senokot once every day, await MRI of the brain with and without dio, if its normal patient can be discharged with afternoon if she did have a good bowel movement all we have to wait until tomorrow morning. 06/03: Patient is laying down in bed in no apparent distress, she is more awake and more alert today, her was at bedside, he was updated about her current condition, her urine culture showing gram-negative bacilli, continue IV antibiotic in the form of ceftriaxone 2 g IV piggyback every 24 hours, follow-up with the patient very closely, once the cultures are back, patient can be discharged home and follow-up with me as an outpatient hopefully in the next 24 hours. 06/03: Patient is doing much better today, she is ambulating well, discontinue IV fluid, urine culture finalized as E. coli, that sensitive to ceftriaxone will switch to oral Ceftin 500 mg orally twice every day for 7 days, patient can be discharged home today and follow-up with me as an outpatient next week. Discharge diagnoses: 1. Metabolic encephalopathy likely due to UTI with sepsis. 2. E. coli UTI with sepsis. 3. Abdominal pain likely related to constipation 4. Hypertension and hypertensive cardiovascular disease. 5. Hyperlipidemia. 6. Hypothyroidism. 7. Hepatocellular carcinoma under the care of Dr. Dillard at [facility] status post radiofrequency ablation on October 2022 currently in remission. 8. History of liver cirrhosis without ascites. 9. Spondylosis of the lumbar spine stable at this time. 10. GERD. 11. Anxiety disorder. Patient Condition at Discharge: Stable Plan - Discharge Summary Discharge Rx Participant: No New Discharge Prescriptions: No Action Levothyroxine Sodium [Synthroid] 88 mcg PO DAILY Cyclobenzaprine [Flexeril] 5 mg PO HS PRN PRN Reason: Muscle Spasm Budesonide/Formoterol Fumarate [Symbicort 160-4.5 Mcg Inhaler] 2 puff INHALATION RT-BID Multivit-Min/FA/Lycopen/Lutein [Centrum Silver Tablet] 1 tab PO DAILY Metoprolol Succinate (ER) [Toprol Xl] 25 mg PO HS Escitalopram [Lexapro] 20 mg PO HS ALPRAZolam [Xanax] 0.5 mg PO DAILY PRN PRN Reason: Insomnia Isosorbide Mononitrate ER [Imdur] 30 mg PO DAILY Calcium Carbonate/Vitamin D3 [Calcium 600 mg-Vit D3 10 mcg (400 Unit)] 1 tab PO DAILY Discharge Medication List ALPRAZolam [Xanax] 0.5 mg PO DAILY PRN 02/26/23 [History] Escitalopram [Lexapro] 20 mg PO HS 02/26/23 [History] Metoprolol Succinate (ER) [Toprol Xl] 25 mg PO HS 02/26/23 [History] Budesonide/Formoterol Fumarate [Symbicort 160-4.5 Mcg Inhaler] 2 puff INHALATION RT-BID 05/31/24 [History] Calcium Carbonate/Vitamin D3 [Calcium 600 mg-Vit D3 10 mcg (400 Unit)] 1 tab PO DAILY 05/31/24 [History] Cyclobenzaprine [Flexeril] 5 mg PO HS PRN 05/31/24 [History] Isosorbide Mononitrate ER [Imdur] 30 mg PO DAILY 05/31/24 [History] Levothyroxine Sodium [Synthroid] 88 mcg PO DAILY 05/31/24 [History] Multivit-Min/FA/Lycopen/Lutein [Centrum Silver Tablet] 1 tab PO DAILY 05/31/24 [History] Follow up Appointment(s)/Referral(s): Saman Ngo MD [Primary Care Provider] - 1-2 days
== END 2024-06-03 10:52 | disposition home or self-care (01) | DRG 871 ==
LOC: EC 13:32 → 6NMEDSUR 19:12 → OBSVTOIN 06-02 14:01
PROVIDERS: ADMIT Internal Medicine; ATTEND Internal Medicine
DX: A41.51 Sepsis due to Escherichia coli [E. coli] (principal); G93.41 Metabolic encephalopathy; K74.69 Other cirrhosis of liver; J43.9 Emphysema, unspecified; E03.9 Hypothyroidism, unspecified; I11.9 Hypertensive heart disease without heart failure; I34.1 Nonrheumatic mitral (valve) prolapse; N39.0 Urinary tract infection, site not specified; M47.816 Spondylosis without myelopathy or radiculopathy, lumbar region; K21.9 Gastro-esophageal reflux disease without esophagitis; F41.9 Anxiety disorder, unspecified; E78.2 Mixed hyperlipidemia; K58.1 Irritable bowel syndrome with constipation; H53.2 Diplopia; G44.1 Vascular headache, not elsewhere classified; Z79.51 Long term (current) use of inhaled steroids; Z85.05 Personal history of malignant neoplasm of liver; Z79.899 Other long term (current) drug therapy; Z79.890 Hormone replacement therapy; Z85.3 Personal history of malignant neoplasm of breast; Z87.891 Personal history of nicotine dependence
CPT/HCPCS: 36415; 70450; 70496; 70498; 70553; 71046; 74019; 80053; 80061; 80306; 80320; 81001; 82140; 82550; 82607; 82746; 84443; 84484; 85025; 85610; 85730; 87077; 87086; 87186; 87636; 93005; 94640; 94760; 95816; 96360; 96361; 99285

== ENCOUNTER → 2024-07-27 | Outpatient (CLI) | payer MEDICARE, BC ==
--- NOTE | 2024-07-28 09:47 | MR ---
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 FINDINGS: Alignment: The lumbar vertebral bodies have preserved heights. No spondylolisthesis. Mild S-shaped sc oliotic curvature of the thoracolumbar spine. Cord: The conus medullaris and the distal spinal cord appear unremarkable with regards to their signa l intensity and morphology. There is enhancement of the bilateral multilevel exiting nerve roots thro ughout the visualized spine. No abnormal enhancement within the spinal cord. Bones/Discs: Advanced multilevel type II Modic changes. A few small Schmorl's nodes. Multilevel disc desiccation and height loss. L1-L2: Broad-based disc bulge with minimal effacement of the anterior thecal sac. No significant cent ral canal stenosis. Ligamenta flava buckling. Bilateral facet arthropathy. Right neural foramen is pa tent. Minimal left neural foraminal narrowing. L2-L3: Broad-based disc bulge with minimal effacement of the anterior thecal sac. No significant cent ral canal stenosis. Ligamenta flava buckling. Bilateral facet arthropathy. Minimal left neural forami nal narrowing. The right neural foramen is patent. L3-L4: Broad-based disc bulge with minimal effacement of the anterior thecal sac. No significant cent ral canal stenosis. Ligamenta flava buckling. Bilateral facet arthropathy. Minimal bilateral neural f oraminal narrowing. L4-L5: Broad-based disc bulge with minimal effacement of the anterior thecal sac. No significant cent ral canal stenosis. Bilateral facet arthropathy. Mild right neural foraminal stenosis. The left neura l foramen is patent. L5-S1: Central disc protrusion without significant effacement of the anterior thecal sac. No signific ant central canal stenosis. Bilateral facet arthropathy. The left neural foramen is patent. Minimal r ight neural foraminal stenosis. Other findings: None. IMPRESSION: 1. 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 No evidence for sign ificant central canal stenosis. 2. Nonspecific multilevel enhancement of the bilateral exiting nerve roots. Can be seen with a variet y of benign or pathologic conditions. Consider further workup. [facility], , 07/28/2024 9:45 AM
== END | disposition home or self-care (01) ==
LOC: RADMRIMAIN 15:08
PROVIDERS: ATTEND Internal Medicine
DX: M51.369 Other intervertebral disc degeneration, lumbar region without mention of lumbar back pain or lower extremity pain (principal); M47.816 Spondylosis without myelopathy or radiculopathy, lumbar region
CPT/HCPCS: 72158; A9585